=== PATIENT | male | born 1950 | race African-American/Black ===

== ENCOUNTER 2016-12-12 16:18 | Inpatient (IN) | payer OTHER, MEDICARE ==
[~2016-12-12] VITALS: Ht 175.3 cm; Wt 60.2 kg
[2016-12-12 17:33] VITALS: BP 160/87; PULSE 97; RESP 16; TEMP 97.9; O2SAT 99
[2016-12-12 20:40] LABS: AUTOMATED NEUTROPHIL # 13.4 TH/MM3 (1.8-7.7); BASOPHIL % 0.1 % (0.0-2.0); HEMATOCRIT 41.2 % (39.0-51.0); HEMO FLAGS DIFF FINAL; LYMPH % 7.1 % (9.0-44.0); LYMPHOCYTE # 1.1 TH/MM3 (1.0-4.8); MEAN CELL VOLUME 92.3 FL (80.0-100.0); MEAN CORPUSCULAR HEMOGLOBIN 31.4 PG (27.0-34.0); MONO % 4.2 % (0.0-8.0); NEUT % 88.6 % (16.0-70.0); PLATELET COUNT 298 TH/MM3 (150-450); RED BLOOD COUNT 4.46 MIL/MM3 (4.50-5.90); RED CELL DISTRIBUTION WIDTH 12.6 % (11.6-17.2); WHITE BLOOD COUNT 15.1 TH/MM3 (4.0-11.0)
[2016-12-12 21:00] LABS: ANION GAP 11 MEQ/L (5-15); BLOOD UREA NITROGEN 21 MG/DL (7-18); CHLORIDE 98 MEQ/L (98-107); GLOMERULAR FILTRATION RATE 65 ML/MIN (>89); POTASSIUM 3.9 MEQ/L (3.5-5.1); SODIUM (NA) 136 MEQ/L (136-145)
--- NOTE | 2016-12-12 21:31 | PD ---
HPI Chief Complaint: Psychiatric Symptoms Time Seen by Provider: 21:29 Travel History International Travel<30 days: No Contact w/Intl Traveler<30days: No Traveled to known affect area: No History of Present Illness HPI Patient reportedly comes in for voluntarily for psychiatric evaluation. Patient denies any homicidal or suicidal ideations. Patient states that his sister made him come. Patient denies any chest pain, shortness of breath, abdominal pain, headache, fevers, nausea, vomiting, or other medical concerns. PFSH Past Medical History Hypertension: Yes Social History Alcohol Use: No Tobacco Use: No Substance Use: No Review of Systems Except as stated in HPI: all other systems reviewed are Neg Physical Exam Narrative GENERAL: Well-developed, well nourished, in no acute distress, and non-ill appearing. SKIN: Focused skin assessment warm and dry. HEAD: Atraumatic. Normocephalic. EYES: Pupils equal and round. EOMI. No scleral icterus. No injection or drainage. ENT: No nasal bleeding or discharge. Mucous membranes pink and moist. NECK: Trachea midline. Supple. No nuclear rigidity. CARDIOVASCULAR: Regular rate and rhythm. No murmur appreciated. RESPIRATORY: No accessory muscle use. No respiratory distress. Clear to auscultation. Breath sounds equal bilaterally. GASTROINTESTINAL: Abdomen soft, non-tender, nondistended. Hepatic and splenic margins not palpable. Normal bowel sounds 4. No pulsatile mass. MUSCULOSKELETAL: No obvious deformities. No clubbing. No cyanosis. No edema. Full range of motion. NEUROLOGICAL: Awake and alert. No obvious cranial nerve deficits. Motor grossly within normal limits. Normal speech. PSYCHIATRIC: Appropriate mood and affect; insight and judgment normal. Data Data Last Documented VS Vital Signs Date Time Temp Pulse Resp B/P Pulse Ox O2 Delivery O2 Flow Rate FiO2 12/12/16 17:33 97.9 97 16 160/87 99 Orders Complete Blood Count With Diff (12/12/16 19:48) Basic Metabolic Panel (Bmp) (12/12/16 19:48) Urinalysis - C+S If Indicated (12/12/16 19:48) Drug Screen, Random Urine (12/12/16 19:48) Salicylates (Aspirin) (12/12/16 19:53) Alcohol (Ethanol) (12/12/16 20:05) Ct Brain W/O Iv Contrast(Rout) (12/12/16 ) Labs Laboratory Tests Test 12/12/16 20:05 White Blood Count 15.1 TH/MM3 Red Blood Count 4.46 MIL/MM3 Hemoglobin 14.0 GM/DL Hematocrit 41.2 % Mean Corpuscular Volume 92.3 FL Mean Corpuscular Hemoglobin 31.4 PG Mean Corpuscular Hemoglobin 34.0 % Concent Red Cell Distribution Width 12.6 % Platelet Count 298 TH/MM3 Mean Platelet Volume 8.3 FL Neutrophils (%) (Auto) 88.6 % Lymphocytes (%) (Auto) 7.1 % Monocytes (%) (Auto) 4.2 % Eosinophils (%) (Auto) 0.0 % Basophils (%) (Auto) 0.1 % Neutrophils # (Auto) 13.4 TH/MM3 Lymphocytes # (Auto) 1.1 TH/MM3 Monocytes # (Auto) 0.6 TH/MM3 Eosinophils # (Auto) 0.0 TH/MM3 Basophils # (Auto) 0.0 TH/MM3 CBC Comment DIFF FINAL Differential Comment Sodium Level 136 MEQ/L Potassium Level 3.9 MEQ/L Chloride Level 98 MEQ/L Carbon Dioxide Level 27.0 MEQ/L Anion Gap 11 MEQ/L Blood Urea Nitrogen 21 MG/DL Creatinine 1.34 MG/DL Estimat Glomerular Filtration 65 ML/MIN Rate Random Glucose 147 MG/DL Calcium Level 9.5 MG/DL Salicylates Level LESS THAN 1.7 MG/DL Ethyl Alcohol Level LESS THAN 3 MG/DL MDM Medical Decision Making Medical Screen Exam Complete: Yes Emergency Medical Condition: Yes Differential Diagnosis Homicidal, suicidal, electrolyte abnormality, UTI, other Narrative Course 2030 patient reevaluated. Ambulatory in the room with minimal assistance. Able to bear full weight. RN states he spoke with patient's sister is not here for psych evaluation but he is here secondary to having frequent falls and unsteady gait. Initial laboratory and radiologic studies were ordered. Patient was signed out to Dr. Hernandez, please see her documentation for diagnosis and disposition. Ethan Jimenez Dec 12, 2016 21:31
[2016-12-12 23:30] LABS: BACTERIA, URINE RARE /hpf; BLOOD, URINE NEG (NEG); COMMENT (UR) CULT NOT INDICATED; CULTURE IF INDICATED CULT NOT INDICATED; GLUCOSE,URINE NEG (NEG); HYALINE CAST, URINE 11 /lpf (RARE); KETONE, URINE 10 mg/dL (NEG); MUCUS URINE MANY /lpf (OCC); NITRITE,URINE NEG (NEG); PH, URINE 5.5 (5.0-8.5); SQUAMOUS EPITHELIAL CELL URINE <1 /hpf (0-5); URINE COLOR YELLOW (YELLW/STRAW)
--- NOTE | 2016-12-12 23:36 | RADRPT ---
EXAM DATE/TIME: 12/12/2016 23:16 [facility] COMPARISON: No previous studies available for comparison. INDICATIONS : Altered mental status, loss of control of body movements. RADIATION DOSE: 37.53 CTDIvol (mGy) MEDICAL HISTORY : Hypertension. SURGICAL HISTORY : None. ENCOUNTER: Initial ACUITY: 1 day PAIN SCALE: 0/10 LOCATION: cranial TECHNIQUE: Multiple contiguous axial images were obtained of the head. Using automated exposure control and adj ustment of the mA and/or kV according to patient size, radiation dose was kept as low as reasonably a chievable to obtain optimal diagnostic quality images. FINDINGS: The ventricles are enlarged out of proportion to the sulcal atrophy. In addition the third ventricle is somewhat prominent. Clinical correlation would be helpful in regards to the possibility of normal pressure hydrocephalus. No acute intracranial hemorrhage, acute cortical infarction, mass or midline shift is seen. There is periventricular hypodensity compatible with chronic ischemic change versus tr ansependymal fluid slightly more than expected for patient this age. Posterior fossa structures are u nremarkable. Bone windows are unremarkable. CONCLUSION: 1. No evidence of acute intracranial pathology. Chronic ischemic changes as above. Possible normal p ressure hydrocephalus. Correlation with clinical findings is necessary. Mata Long MD on December 12, 2016 at 23:32 Board Certified Radiologist. This report was verified electronically.
[2016-12-12 23:40] LABS: AMPHETAMINE, URINE NEG (NEG); BARBITURATES, URINE NEG (NEG); COCAINE, URINE NEG (NEG)
[2016-12-12] MEDS ORDERED: SODIUM CHLOR 0.9% 1000 ML INJ 1,000 ML IV ONE (23:45)
[2016-12-12 23:56] VITALS: BP 137/65
[2016-12-12 23:58] VITALS: BP 156/70
[2016-12-13] VITALS (7 sets, daily range): BP systolic 129–167; BP diastolic 69–90; PULSE 69–109; RESP 16–18; TEMP 96.8–99.1; O2SAT 98–100
--- NOTE | 2016-12-13 00:45 | PD ---
HPI . Frequent falls Chief Complaint: Psychiatric Symptoms Time Seen by Provider: 21:28 Travel History International Travel<30 days: No Contact w/Intl Traveler<30days: No Traveled to known affect area: No History of Present Illness HPI History is obtained from the sister by telephone. He was sent to us for evaluation of frequent falls and unsteady gait. The sister reports that he does not seem stable to live at home anymore. The patient himself has no complaints. The sister reports that his falls have become more frequent. This has been going on for several weeks. COUNTS INCLUDE 234 BEDS AT THE [facility] Past Medical History Medical History: Unable to Obtain Hypertension: Yes Past Surgical History Surgical History: Unable to Obtain Social History Alcohol Use: No Tobacco Use: No Substance Use: No (quit 1997) Allergies-Medications (Allergen,Severity, Reaction): Coded Allergies: UNOBTAINABLE (Unverified , 12/12/16) Review of Systems Except as stated in HPI: all other systems reviewed are Neg General / Constitutional: No: Fever, Chills Eyes: No: Blurred Vision HENT: No: Headaches Cardiovascular: No: Chest Pain or Discomfort Respiratory: No: Cough, Shortness of Breath Gastrointestinal: No: Nausea, Vomiting, Diarrhea, Abdominal Pain Genitourinary: No: Urgency, Frequency, Dysuria Musculoskeletal: No: Myalgias, Arthralgias Physical Exam Narrative GENERAL: This is a very pleasant older man who is in no distress. SKIN: Warm and dry. HEAD: Atraumatic. Normocephalic. EYES: Pupils equal and round. Extraocular movements are intact. ENT: No nasal bleeding or discharge. Mucous membranes pink and moist. NECK: Trachea midline. Neck is supple and nontender. CARDIOVASCULAR: Tachycardic rate, regular rhythm. RESPIRATORY: No accessory muscle use. Lungs are clear with full air movement throughout. GASTROINTESTINAL: Abdomen soft, non-tender, nondistended. MUSCULOSKELETAL: No obvious deformities. No edema. NEUROLOGICAL: Awake and alert. No obvious cranial nerve deficits. Motor grossly within normal limits. Normal speech. He is noted to have a shuffling gait. PSYCHIATRIC: Appropriate mood and affect; insight and judgment normal. Data Data Last Documented VS Vital Signs Date Time Temp Pulse Resp B/P Pulse Ox O2 Delivery O2 Flow Rate FiO2 12/13/16 00:01 119 167/87 12/12/16 17:33 97.9 16 99 Orders Complete Blood Count With Diff (4/14/17 19:48) Basic Metabolic Panel (Bmp) (12/12/16 19:48) Urinalysis - C+S If Indicated (12/12/16 19:48) Drug Screen, Random Urine (12/12/16 19:48) Salicylates (Aspirin) (12/12/16 19:53) Alcohol (Ethanol) (12/12/16 20:05) Ct Brain W/O Iv Contrast(Rout) (12/12/16 ) Orthostatic Vital Signs (12/12/16 22:54) Sodium Chlor 0.9% 1000 Ml Inj (Ns 1000 M (12/12/16 23:45) Urine Culture (12/13/16 00:45) Blood Culture (12/13/16 00:45) Chest, Single Ap (12/13/16 00:46) Lactic Acid Sepsis Protocol (12/13/16 00:46) Piperacil-Tazo 3.375 Gm Premix (Zosyn 3. (12/13/16 01:45) Admit To Inpatient (12/13/16 ) Vital Signs (Adult) Q4H (12/13/16 01:31) Activity Oob With Assistance (12/13/16 01:31) Zoning Assistant / Telemetry .CONTINUOUS (12/13/16 01:31) Intake + Output CAITLYN.QSHIFT (12/13/16 01:31) Diet Heart Healthy (12/13/16 Breakfast) Sodium Chlor 0.9% 1000 Ml Inj (Ns 1000 M (12/13/16 01:31) Sodium Chloride 0.9% Flush (Ns Flush) (12/13/16 01:45) Sodium Chloride 0.9% Flush (Ns Flush) (12/13/16 09:00) Ondansetron Inj (Zofran Inj) (12/13/16 01:45) Bisacodyl Supp (Dulcolax Supp) (12/13/16 01:45) Comprehensive Metabolic Panel (12/13/16 06:00) Complete Blood Count With Diff (12/13/16 06:00) Scd Bilateral/Knee High CAITLYN.BID (12/13/16 01:31) Yonathan Bilateral/Knee High CAITLYN.QSHIFT (12/13/16 01:31) Acetaminophen (Tylenol) (12/13/16 01:45) Acetamin-Hydrocod 325-5 Mg ([place] 5-325 (12/13/16 01:45) Morphine Inj (Morphine Inj) (12/13/16 01:45) Inpatient Certification (12/13/16 ) Hemoglobin (Hgb) A1c (12/13/16 06:00) Bedside Glucose CAITLYN.AC&HS (12/13/16 01:31) Blood Glucose Goal (Criteria) (12/13/16 01:31) Labs Laboratory Tests Test 12/12/16 12/12/16 20:05 22:40 White Blood Count 15.1 TH/MM3 Red Blood Count 4.46 MIL/MM3 Hemoglobin 14.0 GM/DL Hematocrit 41.2 % Mean Corpuscular Volume 92.3 FL Mean Corpuscular Hemoglobin 31.4 PG Mean Corpuscular Hemoglobin 34.0 % Concent Red Cell Distribution Width 12.6 % Platelet Count 298 TH/MM3 Mean Platelet Volume 8.3 FL Neutrophils (%) (Auto) 88.6 % Lymphocytes (%) (Auto) 7.1 % Monocytes (%) (Auto) 4.2 % Eosinophils (%) (Auto) 0.0 % Basophils (%) (Auto) 0.1 % Neutrophils # (Auto) 13.4 TH/MM3 Lymphocytes # (Auto) 1.1 TH/MM3 Monocytes # (Auto) 0.6 TH/MM3 Eosinophils # (Auto) 0.0 TH/MM3 Basophils # (Auto) 0.0 TH/MM3 CBC Comment DIFF FINAL Differential Comment Sodium Level 136 MEQ/L Potassium Level 3.9 MEQ/L Chloride Level 98 MEQ/L Carbon Dioxide Level 27.0 MEQ/L Anion Gap 11 MEQ/L Blood Urea Nitrogen 21 MG/DL Creatinine 1.34 MG/DL Estimat Glomerular Filtration 65 ML/MIN Rate Random Glucose 147 MG/DL Calcium Level 9.5 MG/DL Salicylates Level LESS THAN 1.7 MG/DL Ethyl Alcohol Level LESS THAN 3 MG/DL Urine Color YELLOW Urine Turbidity HAZY Urine pH 5.5 Urine Specific [place] 1.030 Urine Protein 100 mg/dL Urine Glucose (UA) NEG mg/dL Urine Ketones 10 mg/dL Urine Occult Blood NEG Urine Nitrite NEG Urine Bilirubin NEG Urine Urobilinogen LESS THAN 2.0 MG/DL Urine Leukocyte Esterase NEG Urine RBC 2 /hpf Urine WBC 4 /hpf Urine Squamous Epithelial <1 /hpf Cells Urine Bacteria RARE /hpf Urine Hyaline Casts 11 /lpf Urine Mucus MANY /lpf Microscopic Urinalysis Comment CULT NOT INDICATED Urine Opiates Screen NEG Urine Barbiturates Screen NEG Urine Amphetamines Screen NEG Urine Benzodiazepines Screen NEG Urine Cocaine Screen NEG Urine Cannabinoids Screen NEG MDM Medical Decision Making Medical Screen Exam Complete: Yes Emergency Medical Condition: Yes Medical Record Reviewed: Yes (patient has no previous records here for review) Differential Diagnosis Differential diagnosis of weakness includes but is not limited to infection, CVA , electrolyte disturbance, renal failure, hypoglycemia, UTI, ACS, acute blood loss Narrative Course Patient was sent to us by his sister for evaluation of weakness. Somehow, he was initially registered as a psychiatric evaluation. The sister reports that this is not true. The patient has not given us any reason to believe that he is a psychiatric patient. He's been very pleasant and cooperative. CBC & BMP Diagram 12/12/16 20:05 UA looks clean. The patient is receiving IV fluids for the tachycardia. I have added blood cultures and a urine culture. I will also had a chest x-ray. Last Impressions Chest X-Ray 12/13/16 0046 Signed Impressions: Service Date/Time: Tuesday, December 13, 2016 00:58 - CONCLUSION: Cardiomegaly. No acute cardiopulmonary disease. Mata Long MD Head CT 12/12/16 0000 Signed Impressions: Service Date/Time: Monday, December 12, 2016 23:16 - CONCLUSION: 1. No evidence of acute intracranial pathology. Chronic ischemic changes as above. Possible normal pressure hydrocephalus. Correlation with clinical findings is necessary. Mata Long MD Physician Communication Physician Communication Case discussed with Dr. Malin who will admit. Diagnosis Primary Impression: Frequent falls Additional Impressions: Sinus tachycardia Leukocytosis Qualified Code: D72.829 - Leukocytosis, unspecified type Admitting Information Admitting Physician Requests: Admit Condition: Stable Paris Hernandez MD Dec 13, 2016 00:45
--- NOTE | 2016-12-13 01:16 | RADRPT ---
EXAM DATE/TIME: 12/13/2016 00:58 [facility] COMPARISON: No previous studies available for comparison. INDICATIONS : Frequent recent falls. Possible syncopal episode. MEDICAL HISTORY : Hypertension. SURGICAL HISTORY : None. ENCOUNTER: Initial ACUITY: 1 day PAIN SCORE: 0/10 LOCATION: Bilateral chest FINDINGS: The cardiac silhouette is enlarged in transverse diameter. The lungs are free of acute parenchymal op acity. No effusions are identified. Osseous structures are intact. CONCLUSION: Cardiomegaly. No acute cardiopulmonary disease. Mata Long MD on December 13, 2016 at 1:15 Board Certified Radiologist. This report was verified electronically.
[2016-12-13] MEDS ORDERED: GLUCAGON 1 MG/ML VIAL OTHER PRN (01:45)
[2016-12-13] MEDS ORDERED: MORPHINE SULFATE 4 MG/ML INJ IV PRN (01:45)
[2016-12-13] MEDS ORDERED: BISACODYL 10 MG SUPP RECTAL PRN (01:45)
[2016-12-13] MEDS ORDERED: ACETAMINOPHEN 325 MG TAB PO PRN (01:45)
[2016-12-13] MEDS ORDERED: ONDANSETRON HCL 4 MG/2 ML VIAL IVP PRN (01:45)
[2016-12-13] MEDS ORDERED: PIPERACIL-TAZO 3.375 GM PREMIX 50 ML IV ONE (01:45)
[2016-12-13] MEDS ORDERED: DEXTROSE 50% IN WATER 50 ML VIAL(D50) IV PUSH PRN (01:45)
[2016-12-13] MEDS ORDERED: SODIUM CHLORIDE 0.9% FLUSH 10 ML FLUSH IV FLUSH PRN (01:45)
[2016-12-13] MEDS: SODIUM CHLOR 0.9% 1000 ML INJ 1,000 ML IV SCH ×2 (02:01→06:01)
--- NOTE | 2016-12-13 03:42 | HHI.HP ---
[facility] Service [facility] Primary Care Physician Alek Cui MD Admission Diagnosis tachycardia, leukocytosis, frequent falls Diagnoses: (1) SIRS (systemic inflammatory response syndrome) Diagnosis: Principal (2) Renal insufficiency Diagnosis: Principal (3) Hyperglycemia Diagnosis: Principal (4) Gait instability Diagnosis: Principal (5) Abnormal head CT Diagnosis: Principal Travel History International Travel<30 Days: No Contact w/Intl Traveler <30 Da: No Traveled to Known Affected Are: No History of Present Illness This is a 66-year-old male with a PMH of HTN and Dementia who presented to the ER at the insistence of his Sister secondary to recurrent falls. Per Sister's report (via telephone), pt lives alone and has been having recurrent falls, unable to care for self. Pt denies any complaints at this time. On arrival, BP 160/87, HR 97, O2 sat 99% on RA, Afebrile. WBC 15.1, elevated neutrophil count. Creatinine 1.34, no previous labs for comparison. BS 147. UA negative. Urine Drug Screen negative. Alcohol negative. CXR with no acute findings. CT Head with possible NPH no acute intracranial abnormality. S/p Blood/Urine Cultures and Zosyn IV. NxSx consulted for further eval. Review of Systems Except as stated in HPI: all other systems reviewed are Neg ROS: 14 point review of systems otherwise negative. Past Family Social History Past Medical History PMH: HTN and Dementia Past Surgical History PAST SURGICAL HISTORY: Unknown Allergies: Coded Allergies: UNOBTAINABLE (Unverified , 12/12/16) Family History PAST FAMILY HISTORY: Reviewed. No h/o DM or CAD Social History PAST SOCIAL HISTORY: Negative frock all, tobacco or drugs. Physical Exam Vital Signs Vital Signs Date Time Temp Pulse Resp B/P Pulse Ox O2 Delivery O2 Flow Rate FiO2 12/13/16 00:01 119 167/87 12/12/16 23:58 96 156/70 12/12/16 23:56 103 137/65 12/12/16 17:33 97.9 97 16 160/87 99 Physical Exam PE: GENERAL: Middle-aged black male in no acute distress, pressured/tangential speech. HEENT: PERRLA, EOMI. No scleral icterus or conjunctival pallor. No lid lag or facial droop. CARDIOVASCULAR: Regular rate and rhythm. No obvious murmurs to auscultation. No chest tenderness to palpation. RESPIRATORY: No obvious rhonchi or wheezing. Clear to auscultation. Breath sounds equal bilaterally. GASTROINTESTINAL: Abdomen soft, non-tender, nondistended. BS normal. MUSCULOSKELETAL: Extremities without clubbing, cyanosis, or edema. No obvious deformities. NEUROLOGICAL: Awake, alert and oriented x4. No focal neurologic deficits. Moving both upper and lower extremities spontaneously. Laboratory Laboratory Tests Test 12/12/16 12/12/16 12/13/16 20:05 22:40 01:00 White Blood Count 15.1 Red Blood Count 4.46 Hemoglobin 14.0 Hematocrit 41.2 Mean Corpuscular Volume 92.3 Mean Corpuscular Hemoglobin 31.4 Mean Corpuscular Hemoglobin 34.0 Concent Red Cell Distribution Width 12.6 Platelet Count 298 Mean Platelet Volume 8.3 Neutrophils (%) (Auto) 88.6 Lymphocytes (%) (Auto) 7.1 Monocytes (%) (Auto) 4.2 Eosinophils (%) (Auto) 0.0 Basophils (%) (Auto) 0.1 Neutrophils # (Auto) 13.4 Lymphocytes # (Auto) 1.1 Monocytes # (Auto) 0.6 Eosinophils # (Auto) 0.0 Basophils # (Auto) 0.0 CBC Comment DIFF FINAL Differential Comment Sodium Level 136 Potassium Level 3.9 Chloride Level 98 Carbon Dioxide Level 27.0 Anion Gap 11 Blood Urea Nitrogen 21 Creatinine 1.34 Estimat Glomerular Filtration 65 Rate Random Glucose 147 Calcium Level 9.5 Salicylates Level LESS THAN 1.7 Ethyl Alcohol Level LESS THAN 3 Urine Color YELLOW Urine Turbidity HAZY Urine pH 5.5 Urine Specific [place] 1.030 Urine Protein 100 Urine Glucose (UA) NEG Urine Ketones 10 Urine Occult Blood NEG Urine Nitrite NEG Urine Bilirubin NEG Urine Urobilinogen LESS THAN 2.0 Urine Leukocyte Esterase NEG Urine RBC 2 Urine WBC 4 Urine Squamous Epithelial <1 Cells Urine Bacteria RARE Urine Hyaline Casts 11 Urine Mucus MANY Microscopic Urinalysis Comment CULT NOT INDICATED Urine Opiates Screen NEG Urine Barbiturates Screen NEG Urine Amphetamines Screen NEG Urine Benzodiazepines Screen NEG Urine Cocaine Screen NEG Urine Cannabinoids Screen NEG Lactic Acid Level 1.9 Date/Time Procedure Status Source Growth 12/13/16 01:05 Aerobic Blood Culture Received Blood Peripheral Pending 12/13/16 01:05 Anaerobic Blood Culture Received Blood Peripheral Pending 12/12/16 22:40 Urine Culture Received Urine Clean Catch Pending Result Diagram: 12/12/16200412/12/162004 Assessment and Plan Problem List: (1) SIRS (systemic inflammatory response syndrome) ICD Code: R65.10 Status: Acute (2) Leukocytosis ICD Code: D72.829 Status: Acute (3) Renal insufficiency ICD Code: N28.9 Status: Acute (4) Hyperglycemia ICD Code: R73.9 Status: Acute (5) Gait instability ICD Code: R26.81 Status: Acute (6) Abnormal head CT ICD Code: R93.0 Status: Acute Assessment and Plan A/P: 1. SIRS: HR 97, WBC 15.1, Source-Unclear. CXR w/ no acute findings, images reviewed by me. U/a negative. S/p Blood/Urine Cultures and IV Zosyn, follow up cultures, continue w/ IV Abx. 2. Leukocytosis: WBC 15.1, as above, no clear source of infection. Continue w / IV Abx, repeat labs in am. 3. Renal Insufficiency: Creatinine 1.34, no previous labs for comparison. GFR 65. UA negative for TIA. IVF and repeat labs in a.m. 4. Hyperglycemia: BS 147, no history of DM per report. Check Hgb A1c, sliding scale w/ Accu-Cheks. 5. Gait Instability: w/ recurrent falls per Sister, pt lives alone, unsafe discharge home as inability to care for self. Consult PT for eval/tx. Consult Case Management for assistance w/ placement. 6. Abnormal CT Head: CT Head w/ no acute intracranial abnormality, however noted to have possible normal pressure hydrocephalus. NxSx consulted by ER physician for further eval. 7. DVT Prophylaxis: SCD/teds. 8. Social work for DC planning as needed. 9. Case discussed at length with ER physician. Physician Certification 2 Midnight Certification Type: Admission for Inpatient Services Order for Inpatient Services The services are ordered in accordance with Medicare regulations or non- Medicare payer requirements, as applicable. In the case of services not specified as inpatient-only, they are appropriately provided as inpatient services in accordance with the 2-midnight benchmark. Estimated LOS (days): 2 days is the estimated time the patient will need to remain in the hospital, assuming treatment plan goals are met and no additional complications. Post-Hospital Plan: Not yet determined Problem Qualifiers (1) Leukocytosis: Qualified Code: D72.829 - Leukocytosis, unspecified type Raquel Malin MD Dec 13, 2016 03:41
[2016-12-13] MEDS: INSULIN ASPART SUPPLEMENTAL SCALE SQ SCH ×4 (07:00→21:00)
[2016-12-13 07:53] LABS: AUTOMATED NEUTROPHIL # 9.7 TH/MM3 (1.8-7.7); BASOPHIL % 0.1 % (0.0-2.0); EOSINOPHIL % 0.1 % (0.0-4.0); HEMATOCRIT 34.8 % (39.0-51.0); HEMO FLAGS DIFF FINAL; LYMPH % 12.7 % (9.0-44.0); LYMPHOCYTE # 1.5 TH/MM3 (1.0-4.8); MEAN CELL VOLUME 92.2 FL (80.0-100.0); MEAN CORPUSCULAR HEMOGLOBIN 30.5 PG (27.0-34.0); MEAN CORPUSCULAR HGB CONC 33.1 % (32.0-36.0); MONO % 7.1 % (0.0-8.0); PLATELET COUNT 242 TH/MM3 (150-450); RED BLOOD COUNT 3.77 MIL/MM3 (4.50-5.90); RED CELL DISTRIBUTION WIDTH 12.2 % (11.6-17.2); WHITE BLOOD COUNT 12.1 TH/MM3 (4.0-11.0)
--- NOTE | 2016-12-13 08:26 | HHI.PR ---
Subjective Remarks INTERNAL MEDICINE ON SERVICE NOTE This is a private patient of mine. [facility] He is now transferred to my service for continued management. He reports feeling much better this morning. He denies any chest pain, palpitations, headache, nausea of emesis. He states that his legs feel weak. He reports that he is unsure why he keeps falling. He denies any recent major illness, infection or trauma before these occurrences. He feels that his appetite is good and that he is eating well. He states, "my family is worried about me and does not want me to live alone anymore. The want me to go into a detention." He states that he would rather live on his own, but feels that the family knows what is best for him. It is unclear just how long he was on the floor after the fall. His sister found him there and he could not get or assist her helping him to get up. Current work up has shown the presence of enlargement for the ventricles of the brain. Objective - Vital Signs Date Time Temp Pulse Resp B/P Pulse Ox O2 Delivery O2 Flow Rate FiO2 12/13/16 03:55 99.1 100 17 141/76 100 12/13/16 03:39 Room Air 12/13/16 03:33 109 18 130/78 99 12/13/16 00:01 119 167/87 12/12/16 23:58 96 156/70 12/12/16 23:56 103 137/65 12/12/16 17:33 97.9 97 16 160/87 99 I/O 12/12/16 12/12/16 12/12/16 12/13/16 12/13/16 12/13/16 07:00 15:00 23:00 07:00 15:00 23:00 Intake Total 786 ml 151 ml Balance 786 ml 151 ml Intake Oral 240 ml IV Total 546 ml 151 ml # Voids 2 # Bowel Movements 0 Result Diagram: 12/13/16 0707 12/12/162004 Objective Remarks GENERAL: He is alert and oriented. SKIN: Warm and dry. HEAD: Normocephalic. Atraumatic. EYES: No scleral icterus. No injection or drainage. NECK: Supple, trachea midline. No jugular venous distention or lymphadenopathy. CARDIOVASCULAR: Regular rate and rhythm without murmurs, gallops, or rubs. RESPIRATORY: Breath sounds equal bilaterally. No accessory muscle use. GASTROINTESTINAL: Abdomen soft, non-tender, nondistended. MUSCULOSKELETAL: Free range of motion. No cyanosis, or edema. BACK: Nontender without obvious deformity. No CVA tenderness. NEUROLOGICAL: There is no obvious lateralized focal motor deficit. A/P Assessment and Plan ASSESSMENT 1. Sinus Tachycardia. 2. Leukocytosis. 3. Multiple Falls. 4. Probable Normal Pressure Hydrocephalus. 5. Probable Rhabdomyolysis. 6. Hypertension. 7. Chronic Ataxic Gait. PLAN 1. MRI of the Brain is pending. 2. Neurosurgery is consulted to see him. 3. Continue with the current therapeutics. 4. Follow up labs for muscle enzmes, thyroid function, urine abnormality and cardiac status. 5. DVT and PE prophylaxis. Alek Cui MD Dec 13, 2016 08:26
[2016-12-13] MEDS: SODIUM CHLORIDE 0.9% FLUSH 10 ML FLUSH IV FLUSH SCH ×2 (08:37→21:00)
[2016-12-13] MEDS: PIPERACIL-TAZO 3.375 GM PREMIX 50 ML IV SCH ×3 (08:37→21:25)
[2016-12-13 08:57] LABS: ALKALINE PHOSPHATASE 69 U/L (45-117); ALT (GPT) 41 U/L (12-78); ANION GAP 8 MEQ/L (5-15); AST (GOT) 95 U/L (15-37); BICARBONATE 26.5 MEQ/L (21.0-32.0); BLOOD UREA NITROGEN 26 MG/DL (7-18); CHLORIDE 106 MEQ/L (98-107); GLOMERULAR FILTRATION RATE 80 ML/MIN (>89); POTASSIUM 3.8 MEQ/L (3.5-5.1); SODIUM (NA) 140 MEQ/L (136-145); TOTAL BILIRUBIN ADULT 0.4 MG/DL (0.2-1.0)
--- NOTE | 2016-12-13 09:38 | HHI.PR ---
Addendum to Inpatient Note Additional Information Discussed with Dr. Ryley Cui who is this patient's primary care physician. Dr. Cui would like to assume care. I have transferred care to his service. Dora Antunez MD Dec 13, 2016 09:38
--- NOTE | 2016-12-13 09:42 | PD.CONS ---
HPI Service Neurosurgery Consult Requested By Dr Hernandez Reason for Consult Hydrocephalus Primary Care Physician Alek Cui MD History of Present Illness This is a 66-year-old male with history of HTN and Dementia who was brought to [facility] for recurrent falls. According to his sister he lives alone and has been having recurrent falls, unable to care for self. No seizure activity. No incontinence of stool or urine. Not long biting. On arrival, his blood pressure was 160/87. He was moving all 4 extremities without any focal weakness or sensory loss. 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 Neurosurgical consultation was requested Review of Systems Constitutional: DENIES: Diaphoretic episodes, Fatigue, Fever, Weight gain, Weight loss, Chills, Dizziness, Change in appetite, Night Sweats Endocrine: DENIES: Heat/cold intolerance, Polydipsia, Polyuria, Polyphagia Eyes: DENIES: Blurred vision, Diplopia, Eye inflammation, Eye pain, Vision loss , Photosensitivity, Double Vision Ears, nose, mouth, throat: DENIES: Tinnitus, Hearing loss, Vertigo, Nasal discharge, Oral lesions, Throat pain, Hoarseness, Ear Pain, Running Nose, Epistaxis, Sinus Pain, Toothache, Odynophagia Respiratory: DENIES: Apneas, Cough, Snoring, Wheezing, Hemoptysis, Sputum production, Shortness of breath Gastrointestinal: DENIES: Abdominal pain, Black stools, Bloody stools, Constipation, Diarrhea, Nausea, Vomiting, Difficulty Swallowing, Anorexia Genitourinary: COMPLAINS OF: Urgency, DENIES: Sexual dysfunction, Urinary frequency, Urinary incontinence, Hematuria, Dysuria, Nocturia, Penile Discharge , Testicular Pain, Testicular Swelling Musculoskeletal: DENIES: Joint pain, Muscle aches, Stiffness, Joint Swelling, Back pain, Neck pain Integumentary: DENIES: Abnormal pigmentation, Nail changes, Pruritus, Rash Hematologic/lymphatic: DENIES: Bruising, Lymphadenopathy Immunologic/allergic: DENIES: Eczema, Urticaria Neurologic: COMPLAINS OF: Abnormal gait, DENIES: Headache, Localized weakness , Paresthesias, Seizures, Speech Problems, Tremor, Poor Balance Psychiatric: DENIES: Anxiety, Confusion, Mood changes, Depression, Hallucinations, Agitation, Suicidal Ideation, Homicidal Ideation, Delusions Past Family Social History Allergies: Coded Allergies: Penicillin (Verified Allergy, Unknown, 12/13/16) Past Medical History HTN Dementia Reported Medications Reviewing in EMR Active Ordered Medications Current Medications Sodium Chloride 1,000 ml @ 999 mls/hr BOLUS ONCE IV Last administered on 12/12 23:53; Start 12/12/16 at 23:45; Stop 12/13/16 at 00:45; Status DC Piperacillin Sod/ Tazobactam Sod 50 ml @ 100 mls/hr ONCE ONCE IV Last administered on 12/13/16 02:01; Start 12/13/16 at 01:45; Stop 12/13/16 at 02:14 ; Status DC Sodium Chloride (NS 1000 ml Inj) 1,000 ml @ 100 mls/hr Q10H IV Last administered on 12/13/16 06:01; Start 12/13/16 at 01:31 Sodium Chloride (NS Flush) 2 ml UNSCH PRN IV FLUSH FLUSH AFTER USING IV ACCESS ; Start 12/13/16 at 01:45 Sodium Chloride (NS Flush) 2 ml BID IV FLUSH Last administered on 12/13/16 08: 37; Start 12/13/16 at 09:00 Ondansetron HCl (Zofran Inj) 4 mg Q6H PRN IVP NAUSEA OR VOMITING; Start at 01:45 Bisacodyl (Dulcolax Supp) 10 mg DAILY PRN RECTAL CONSTIPATION; Start 12/13/16 at 01:45 Acetaminophen (Tylenol) 650 mg Q6H PRN PO FEVER/PAIN SCALE 1 TO 2; Start at 01:45 Acetaminophen/ Hydrocodone Bitart ([place] 5-325 Mg) 1 tab Q4H PRN PO PAIN SCALE 3 TO 5; Start 12/13/16 at 01:45 Morphine Sulfate (Morphine Inj) 2 mg Q3H PRN IV Pain 6-10; Start 12/13/16 at 01 :45 Dextrose (D50w (Vial) Inj) 25 ml UNSCH PRN IV PUSH HYPOGLYCEMIA-SEE COMMENTS; Start 12/13/16 at 01:45 Glucagon (Glucagon Inj) 1 mg UNSCH PRN OTHER HYPOGLYCEMIA-SEE COMMENTS; Start 12/13/16 at 01:45 Insulin Aspart 1 1 ACHS SLIDING SCALE SQ ; Start 12/13/16 at 07:00 Piperacillin Sod/ Tazobactam Sod (Zosyn 3.375 Gm Premix) 50 ml @ 100 mls/hr Q6H IV Last administered on 12/13/16t 08:37; Start 12/13/16 at 08:00 Family History Noncontributory Social History Negative for ETOH Negative tobacco Negative drug use. Physical Exam Vital Signs Vital Signs Date Time Temp Pulse Resp B/P Pulse Ox O2 Delivery O2 Flow Rate FiO2 12/13/16 03:55 99.1 100 17 141/76 100 12/13/16 03:39 Room Air 12/13/16 03:33 109 18 130/78 99 12/13/16 00:01 119 167/87 12/12/16 23:58 96 156/70 12/12/16 23:56 103 137/65 12/12/16 17:33 97.9 97 16 160/87 99 Physical Exam The patient is alert, awake and oriented to time, place and person. Speech is fluent. Cranial nerve examination demonstrates the pupils to be equal, round, and reactive to light. Extra-ocular movements are intact. Facial motor and sensory function are normal and symmetrical. Gross hearing is intact, bilaterally. The uvula is midline and elevates symmetrically with the soft palate. Sternocleidomastoid and trapezius muscles have normal and symmetrical strength. Other cranial nerves are intact. Neck is soft and supple. Cervical spine has a good range of motion in anterior flexion, extension, lateral bending, and rotation without pain. There is no tenderness to palpation to the spinous processes or paraspinal muscles. Muscle testing reveals normal bulk and tone overall without rigidity, spasticity , fasciculations, or atrophy. Muscle strength is 5/5 in all muscle groups of both upper extremities including deltoid, biceps, triceps, brachioradialis, wrist extension and railroad shop inspector. In the lower extremities, strength is 5/5 in both iliopsoas, quadriceps, hamstrings, plantar flexion, dorsiflexion, and extensor hallicus longus. Sensory examination is intact to light touch and sharp/dull discrimination in both the upper and lower extremities, symmetrically. Deep tendon reflexes are 2+ and symmetrical in the biceps, triceps, and brachioradialis, bilaterally, in the upper extremities. In the lower extremities , the patellar and Achilles are 2+, bilaterally. There is a bilateral plantar flexion response. Hoffmanns sign is negative. There is no clonus or other abnormal reflexes noted. Cerebellar examination is intact to [id number] test, rapid rhythmic alternating motion. There is no dysmetria, dysdiadochokinesia, truncal ataxia Laboratory Laboratory Tests Test 12/12/16 12/12/16 12/13/16 12/13/16 20:05 22:40 01:00 07:07 White Blood Count 15.1 12.1 Red Blood Count 4.46 3.77 Hemoglobin 14.0 11.5 Hematocrit 41.2 34.8 Mean Corpuscular Volume 92.3 92.2 Mean Corpuscular Hemoglobin 31.4 30.5 Mean Corpuscular Hemoglobin 34.0 33.1 Concent Red Cell Distribution Width 12.6 12.2 Platelet Count 298 242 Mean Platelet Volume 8.3 8.3 Neutrophils (%) (Auto) 88.6 80.0 Lymphocytes (%) (Auto) 7.1 12.7 Monocytes (%) (Auto) 4.2 7.1 Eosinophils (%) (Auto) 0.0 0.1 Basophils (%) (Auto) 0.1 0.1 Neutrophils # (Auto) 13.4 9.7 Lymphocytes # (Auto) 1.1 1.5 Monocytes # (Auto) 0.6 0.9 Eosinophils # (Auto) 0.0 0.0 Basophils # (Auto) 0.0 0.0 CBC Comment DIFF FINAL DIFF FINAL Differential Comment Sodium Level 136 140 Potassium Level 3.9 3.8 Chloride Level 98 106 Carbon Dioxide Level 27.0 26.5 Anion Gap 11 8 Blood Urea Nitrogen 21 26 Creatinine 1.34 1.12 Estimat Glomerular Filtration 65 80 Rate Random Glucose 147 95 Calcium Level 9.5 8.3 Salicylates Level LESS THAN 1.7 Ethyl Alcohol Level LESS THAN 3 Urine Color YELLOW Urine Turbidity HAZY Urine pH 5.5 Urine Specific Tracy 1.030 Urine Protein 100 Urine Glucose (UA) NEG Urine Ketones 10 Urine Occult Blood NEG Urine Nitrite NEG Urine Bilirubin NEG Urine Urobilinogen LESS THAN 2.0 Urine Leukocyte Esterase NEG Urine RBC 2 Urine WBC 4 Urine Squamous Epithelial <1 Cells Urine Bacteria RARE Urine Hyaline Casts 11 Urine Mucus MANY Microscopic Urinalysis Comment CULT NOT INDICATED Urine Opiates Screen NEG Urine Barbiturates Screen NEG Urine Amphetamines Screen NEG Urine Benzodiazepines Screen NEG Urine Cocaine Screen NEG Urine Cannabinoids Screen NEG Lactic Acid Level 1.9 Total Bilirubin 0.4 Aspartate Amino Transf 95 (AST/SGOT) Alanine Aminotransferase 41 (ALT/SGPT) Alkaline Phosphatase 69 Total Protein 6.7 Albumin 2.8 Date/Time Procedure Status Source Growth 12/13/16 01:05 Aerobic Blood Culture Received Blood Peripheral Pending 12/13/16 01:05 Anaerobic Blood Culture Received Blood Peripheral Pending 12/12/16 22:40 Urine Culture Received Urine Clean Catch Pending Result Diagram: 12/13/16 0707 12/13/16 0707 Imaging Last Impressions Chest X-Ray 12/13/16 0046 Signed Impressions: Service Date/Time: Tuesday, December 13, 2016 00:58 - CONCLUSION: Cardiomegaly. No acute cardiopulmonary disease. Mata Long MD Head CT 12/12/16 0000 Signed Impressions: Service Date/Time: Monday, December 12, 2016 23:16 - CONCLUSION: 1. No evidence of acute intracranial pathology. Chronic ischemic changes as above. Possible normal pressure hydrocephalus. Correlation with clinical findings is necessary. Mata Long MD Assessment and Plan Assessment and Plan (1) SIRS (systemic inflammatory response syndrome) ICD Code: R65.10 Status: Acute (2) Leukocytosis ICD Code: D72.829 Status: Acute (3) Renal insufficiency ICD Code: N28.9 Status: Acute (4) Hyperglycemia ICD Code: R73.9 Status: Acute (5) Gait instability ICD Code: R26.81 Status: Acute (6) Abnormal head CT ICD Code: R93.0 Attending Statement I have reviewed his clinical and radiological studies. Start neuro checks in a serial fashion. Recommend further evaluation with physical therapy to assess his baseline, placement of a lumbar drain and continue cerebrospinal fluid drainage for 24-48 hours to determine where there is improvement of his gait Consult interventional radiology for placement of a lumbar drain Respiratory. pulmonary toilette, nasotracheal suction, and breathing treatments with nebulizers. PT and OT eval Nutrition. Oral diet Renal. Renal Insufficiency: Creatinine 1.34, no previous labs for comparison. GFR 65. UA negative, monitor closely urine output, BUN and creatinine Endocrine. Monitor serial Acu checks and SSI for tight control ID Leukocytosis, no clear source of infection. Monitor for signs of infection Protonix for stress ulcer prophylaxis Yonathan martinez and SCD's for DVT prophylaxis Saeid Partida MD Dec 13, 2016 09:42
[2016-12-13 10:03] LABS: MAGNESIUM 2.3 MG/DL (1.5-2.5); THYROXINE (T4) 7.9 MCG/DL (4.5-12.1)
[2016-12-13 10:16] LABS: CKMB 14.4 NG/ML (0.5-3.6)
[2016-12-13 10:58] LABS: HEMOGLOBIN A1a 0.9 %; HEMOGLOBIN A1b 1.4 %; HEMOGLOBIN LA1C 1.9 %; HEMOGLOBIN P3 3.5 %
[2016-12-13] MEDS: SODIUM CHLOR 0.45% 1000 ML INJ 1,000 ML IV SCH (15:31)
--- NOTE | 2016-12-13 15:41 | RADRPT ---
EXAM DATE/TIME: 12/13/2016 15:06 [facility] COMPARISON: CT BRAIN W/O CONTRAST, December 12, 2016, 23:16. INDICATIONS : Frequent falls. MEDICAL HISTORY : Hypertension. Dementia. SURGICAL HISTORY : None. ENCOUNTER: Initial ACUITY: 1 day PAIN SCORE: 0/10 LOCATION: cranial TECHNIQUE: Multiplanar, multisequence MRI of the brain was performed without contrast. FINDINGS: There is mild hydrocephalus similar to recent CT examination. There is moderate chronic ischemic miller ges in the periventricular white matter. No recent infarction is identified. There is no mass or midl ine shift. No sellar mass identified. CONCLUSION: 1. Mild hydrocephalus with chronic appearing moderate periventricular white matter ischemic changes. No recent infarct. Jun Pena MD on December 13, 2016 at 15:36 Board Certified Radiologist. This report was verified electronically.
[2016-12-14] VITALS (7 sets, daily range): BP systolic 145–178; BP diastolic 74–87; PULSE 75–89; RESP 16–17; TEMP 96.9–98.2; O2SAT 95–100
[2016-12-14] MEDS: PIPERACIL-TAZO 3.375 GM PREMIX 50 ML IV SCH ×4 (02:32→20:00)
[2016-12-14] MEDS: SODIUM CHLOR 0.45% 1000 ML INJ 1,000 ML IV SCH ×3 (06:45→22:45)
[2016-12-14] MEDS: INSULIN ASPART SUPPLEMENTAL SCALE SQ SCH ×4 (07:00→21:00)
[2016-12-14] MEDS: SODIUM CHLORIDE 0.9% FLUSH 10 ML FLUSH IV FLUSH SCH ×2 (08:21→21:00)
[2016-12-14 09:28] LABS: AUTOMATED NEUTROPHIL # 8.6 TH/MM3 (1.8-7.7); BASOPHIL # 0.1 TH/MM3 (0-0.2); BASOPHIL % 0.5 % (0.0-2.0); EOSINOPHIL % 0.4 % (0.0-4.0); HEMATOCRIT 35.6 % (39.0-51.0); HEMO FLAGS DIFF FINAL; LYMPH % 17.2 % (9.0-44.0); MEAN CELL VOLUME 92.7 FL (80.0-100.0); MEAN CORPUSCULAR HGB CONC 33.4 % (32.0-36.0); MONO % 6.8 % (0.0-8.0); NEUT % 75.1 % (16.0-70.0); PLATELET COUNT 266 TH/MM3 (150-450); RED BLOOD COUNT 3.84 MIL/MM3 (4.50-5.90); RED CELL DISTRIBUTION WIDTH 12.2 % (11.6-17.2); WHITE BLOOD COUNT 11.5 TH/MM3 (4.0-11.0)
[2016-12-14 09:59] LABS: BICARBONATE 29.1 MEQ/L (21.0-32.0); POTASSIUM 3.8 MEQ/L (3.5-5.1)
[2016-12-14 10:43] LABS: CKMB 4.4 NG/ML (0.5-3.6)
--- NOTE | 2016-12-14 10:51 | HHI.NSPN ---
Note Status Status: Progress Note Interval History Diagnosis NPH Interval History Mr. Burris is a 66-year-old male with history of HTN and Dementia who was brought to [place] [facility] for recurrent falls. 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 Neurosurgical consultation was requested 12/15: he reports no changes in his gait, Dr. Partida again offered trial with lumbar drain, pt states he does not want to have it done today and wants to relax Labs, Micro, & Vital Signs Results Date Time Temp Pulse Resp B/P Pulse Ox O2 Delivery O2 Flow Rate FiO2 12/14/16 08:00 97.6 89 16 160/87 100 12/14/16 07:25 83 12/14/16 04:10 98.2 84 17 162/77 99 12/14/16 00:45 97.1 75 17 164/74 95 12/13/16 21:00 96.8 85 16 147/83 100 12/13/16 16:00 98.9 99 16 156/90 98 12/13/16 12:00 99.1 94 16 129/69 98 12/14/16 07:00 Intake Total 2554 ml Output Total 400 ml Balance 2154 ml Constitutional Vital Signs Date Time Temp Pulse Resp B/P Pulse Ox O2 Delivery O2 Flow Rate FiO2 12/14/16 08:00 97.6 89 16 160/87 100 12/14/16 07:25 83 12/14/16 04:10 98.2 84 17 162/77 99 12/14/16 00:45 97.1 75 17 164/74 95 12/13/16 21:00 96.8 85 16 147/83 100 12/13/16 16:00 98.9 99 16 156/90 98 12/13/16 12:00 99.1 94 16 129/69 98 12/14/16 07:00 Intake Total 2554 ml Output Total 400 ml Balance 2154 ml Review of Systems/Exam Exam Mr Burris is alert, awake and oriented to time, place and person. Speech is fluent. Cranial nerve examination demonstrates the pupils to be equal, round, and reactive to light. Extra-ocular movements are intact. Facial motor and sensory function are normal and symmetrical. Gross hearing is intact, bilaterally. The uvula is midline and elevates symmetrically with the soft palate. Sternocleidomastoid and trapezius muscles have normal and symmetrical strength. Other cranial nerves are intact. Neck is soft and supple. Cervical spine has a good range of motion in anterior flexion, extension, lateral bending, and rotation without pain. There is no tenderness to palpation to the spinous processes or paraspinal muscles. Muscle testing reveals normal bulk and tone overall without rigidity, spasticity , fasciculations, or atrophy. Muscle strength is 5/5 in all muscle groups of both upper extremities including deltoid, biceps, triceps, brachioradialis, wrist extension and career technical counselor. In the lower extremities, strength is 5/5 in both iliopsoas, quadriceps, hamstrings, plantar flexion, dorsiflexion, and extensor hallicus longus. Sensory examination is intact to light touch and sharp/dull discrimination in both the upper and lower extremities, symmetrically. Deep tendon reflexes are 2+ and symmetrical in the biceps, triceps, and brachioradialis, bilaterally, in the upper extremities. In the lower extremities , the patellar and Achilles are 2+, bilaterally. There is a bilateral plantar flexion response. Hoffmanns sign is negative. There is no clonus or other abnormal reflexes noted. Cerebellar examination is intact to [id number] test, rapid rhythmic alternating motion. There is no dysmetria, dysdiadochokinesia, truncal ataxia Medications Current Medications Current Medications Sodium Chloride 1,000 ml @ 999 mls/hr BOLUS ONCE IV Last administered on 12/12 23:53; Start 12/12/16 at 23:45; Stop 12/13/16 at 00:45; Status DC Piperacillin Sod/ Tazobactam Sod 50 ml @ 100 mls/hr ONCE ONCE IV Last administered on 12/13/16 02:01; Start 12/13/16 at 01:45; Stop 12/13/16 at 02:14 ; Status DC Sodium Chloride (NS 1000 ml Inj) 1,000 ml @ 100 mls/hr Q10H IV Last administered on 12/13/16 06:01; Start 12/13/16 at 01:31; Stop 12/13/16 at 14:36 ; Status DC Sodium Chloride (NS Flush) 2 ml UNSCH PRN IV FLUSH FLUSH AFTER USING IV ACCESS ; Start 12/13/16 at 01:45 Sodium Chloride (NS Flush) 2 ml BID IV FLUSH Last administered on 12/13/16 21: 00; Start 12/13/16 at 09:00 Ondansetron HCl (Zofran Inj) 4 mg Q6H PRN IVP NAUSEA OR VOMITING; Start at 01:45 Bisacodyl (Dulcolax Supp) 10 mg DAILY PRN RECTAL CONSTIPATION; Start 12/13/16 at 01:45 Acetaminophen (Tylenol) 650 mg Q6H PRN PO FEVER/PAIN SCALE 1 TO 2; Start at 01:45 Acetaminophen/ Hydrocodone Bitart ([place] 5-325 Mg) 1 tab Q4H PRN PO PAIN SCALE 3 TO 5; Start 12/13/16 at 01:45 Morphine Sulfate (Morphine Inj) 2 mg Q3H PRN IV Pain 6-10; Start 12/13/16 at 01 :45 Dextrose (D50w (Vial) Inj) 25 ml UNSCH PRN IV PUSH HYPOGLYCEMIA-SEE COMMENTS; Start 12/13/16 at 01:45 Glucagon (Glucagon Inj) 1 mg UNSCH PRN OTHER HYPOGLYCEMIA-SEE COMMENTS; Start 12/13/16 at 01:45 Insulin Aspart 1 1 ACHS SLIDING SCALE SQ Last administered on 12/15/16 11:00 ; Start 12/13/16 at 07:00 Piperacillin Sod/ Tazobactam Sod 50 ml @ 100 mls/hr Q6H IV Last administered on 12/15/16 07:54; Start 12/13/16 at 08:00 Sodium Chloride (1/2 NS 1000 ml Inj) 1,000 ml @ 125 mls/hr Q8H IV Last administered on 12/14/16 08:21; Start 12/13/16 at 14:45 Amlodipine Besylate (Norvasc) 10 mg ONCE ONCE PO Last administered on 12:24; Start 12/14/16 at 12:00; Stop 12/14/16 at 12:04; Status DC Lisinopril (Prinivil) 20 mg DAILY PO Last administered on 12/15/16 07:54; Start 12/15/16 at 09:00 Medical Decision Making MDM Remarks Last Impressions Chest X-Ray 12/13/16 0046 Signed Impressions: Service Date/Time: Tuesday, December 13, 2016 00:58 - CONCLUSION: Cardiomegaly. No acute cardiopulmonary disease. Mata Long MD Brain MRI 12/13/16 0000 Signed Impressions: Service Date/Time: Tuesday, December 13, 2016 15:06 - CONCLUSION: 1. Mild hydrocephalus with chronic appearing moderate periventricular white matter ischemic changes. No recent infarct. Jun Pena MD Head CT 12/12/16 0000 Signed Impressions: Service Date/Time: Monday, December 12, 2016 23:16 - CONCLUSION: 1. No evidence of acute intracranial pathology. Chronic ischemic changes as above. Possible normal pressure hydrocephalus. Correlation with clinical findings is necessary. Mata Long MD Plan Plan Remarks 66 y/o male recurrent falls, evidence of communicating hydrocephalus on Head CT , suspected NPH (1) SIRS (systemic inflammatory response syndrome) ICD Code: R65.10 Status: Acute (2) Leukocytosis ICD Code: D72.829 Status: Acute (3) Renal insufficiency ICD Code: N28.9 Status: Acute (4) Hyperglycemia ICD Code: R73.9 Status: Acute (5) Gait instability ICD Code: R26.81 Status: Acute (6) Abnormal head CT ICD Code: R93.0 Attending Statement Continue neuro checks in a serial fashion. Recommend further evaluation with physical therapy to assess his baseline, placement of a lumbar drain and continuous cerebrospinal fluid drainage for 24-48 hours to determine where there is improvement of his gait Consult interventional radiology for placement of a lumbar drain Respiratory. Continue pulmonary toilette, nasotracheal suction, and breathing treatments with nebulizers. PT and OT eval Nutrition. Continue Oral diet Renal. Renal Insufficiency: Creatinine 1.34, no previous labs for comparison. GFR 65. UA negative, monitor closely urine output, BUN and creatinine Endocrine. Monitor serial Acu checks and SSI for tight control ID Leukocytosis, no clear source of infection. Monitor for signs of infection Continue Protonix for stress ulcer prophylaxis Continue Yonathan hose and SCD's for DVT prophylaxis Saeid Partida MD Dec 14, 2016 10:51
--- NOTE | 2016-12-14 12:10 | HHI.PR ---
Subjective Remarks He is being with visitation by his sister. He denies any new adverse complaints. The disposition of Neurosurgery is appreciated with the plan of treatment started. He has been seen by Physical Therapy. His appetite appears to be good. The marked elevation of his muscle enzymes have shown a decrease in the level of total CPK. He continues with intravenous hydration. Objective - Vital Signs Date Time Temp Pulse Resp B/P Pulse Ox O2 Delivery O2 Flow Rate FiO2 12/14/16 11:52 96.9 80 16 178/87 99 12/14/16 08:00 97.6 89 16 160/87 100 12/14/16 07:25 83 12/14/16 04:10 98.2 84 17 162/77 99 12/14/16 00:45 97.1 75 17 164/74 95 12/13/16 21:00 96.8 85 16 147/83 100 12/13/16 16:00 98.9 99 16 156/90 98 I/O 12/13/16 12/13/16 12/13/16 12/14/16 12/14/16 12/14/16 07:00 15:00 23:00 07:00 15:00 23:00 Intake Total 786 ml 951 ml 240 ml 1363 ml Output Total 400 ml Balance 786 ml 951 ml -160 ml 1363 ml Intake Oral 240 ml 600 ml 240 ml 240 ml IV Total 546 ml 351 ml 1123 ml Output Urine Total 400 ml # Voids 2 4 1 3 # Bowel Movements 0 0 0 0 Result Diagram: 12/14/16 0915 12/14/16 0915 Objective Remarks GENERAL: Alert and in no acute distress. SKIN: Warm and dry. HEAD: Normocephalic. Atraumatic. EYES: No scleral icterus. No injection or drainage. NECK: Supple, trachea midline. No jugular venous distention or lymphadenopathy. CARDIOVASCULAR: Regular rate and rhythm without murmurs, gallops, or rubs. RESPIRATORY: Breath sounds equal bilaterally. No accessory muscle use. GASTROINTESTINAL: Abdomen soft, non-tender, nondistended. MUSCULOSKELETAL: Free range of motion. No cyanosis, or edema. BACK: Nontender without obvious deformity. No costovertebral angle tenderness. No sacral edema. A/P Assessment and Plan ASSESSMENT 1. Normal Pressure Hydrocephalus. 2. Rhabdomyolysis. 3. Multiple Falls. 4. Leukocytosis. 5. Sinus Tachycardia. 6. Hypertension. 7. Chronic Ataxic Gait. PLAN 1. Discussed the MRI of Brain results with the patient and his sister. 2. Neurosurgery continues with treatment plan. 3. Continue with the current therapeutics. 4. Follow up labs as needed. 5. DVT and PE prophylaxis. Alek Cui MD Dec 14, 2016 12:10 Alek Cui MD Dec 14, 2016 12:10
--- NOTE | 2016-12-14 13:44 | EKG ---
Date Performed: 12/13/2016 Time Performed: 14:49:38 PTAGE: 66 years EKG: Sinus rhythm MINIMAL VOLTAGE CRITERIA FOR LVH, CONSIDER NORMAL VARIANT BORDERLINE ECG NO PREVIOUS TRACING DOCTOR: Hema Lion Interpretating Date/Time 12/14/2016 13:42:47
[2016-12-15] VITALS (7 sets, daily range): BP systolic 131–169; BP diastolic 69–95; PULSE 65–92; RESP 16–19; TEMP 96.2–98.4; O2SAT 98–100
[2016-12-15] MEDS: PIPERACIL-TAZO 3.375 GM PREMIX 50 ML IV SCH ×4 (02:03→19:42)
[2016-12-15] MEDS: SODIUM CHLOR 0.45% 1000 ML INJ 1,000 ML IV SCH ×3 (06:45→22:45)
[2016-12-15] MEDS: INSULIN ASPART SUPPLEMENTAL SCALE SQ SCH ×4 (07:00→19:48)
[2016-12-15 07:25] LABS: AUTOMATED NEUTROPHIL # 5.1 TH/MM3 (1.8-7.7); BASOPHIL # 0.1 TH/MM3 (0-0.2); BASOPHIL % 0.9 % (0.0-2.0); EOSINOPHIL # 0.1 TH/MM3 (0-0.4); HEMATOCRIT 36.4 % (39.0-51.0); HEMO FLAGS DIFF FINAL; LYMPH % 27.3 % (9.0-44.0); LYMPHOCYTE # 2.2 TH/MM3 (1.0-4.8); MEAN CELL VOLUME 92.8 FL (80.0-100.0); MEAN CORPUSCULAR HEMOGLOBIN 30.6 PG (27.0-34.0); MEAN CORPUSCULAR HGB CONC 32.9 % (32.0-36.0); MONO % 8.4 % (0.0-8.0); NEUT % 62.4 % (16.0-70.0); PLATELET COUNT 295 TH/MM3 (150-450); RED BLOOD COUNT 3.92 MIL/MM3 (4.50-5.90); RED CELL DISTRIBUTION WIDTH 12.3 % (11.6-17.2); WHITE BLOOD COUNT 8.2 TH/MM3 (4.0-11.0)
[2016-12-15] MEDS: LISINOPRIL 20 MG TAB PO SCH (07:54)
[2016-12-15] MEDS: SODIUM CHLORIDE 0.9% FLUSH 10 ML FLUSH IV FLUSH SCH ×2 (07:56→19:16)
[2016-12-15 08:07] LABS: BICARBONATE 28.9 MEQ/L (21.0-32.0); MAGNESIUM 2.2 MG/DL (1.5-2.5); POTASSIUM 3.6 MEQ/L (3.5-5.1)
[2016-12-15 08:23] LABS: CKMB 2.3 NG/ML (0.5-3.6)
--- NOTE | 2016-12-15 10:38 | HHI.NSPN ---
(Kristel Arellano) Note Status Status: Progress Note (Kristel Arellano) Interval History Interval History Mr. Burris is a 66-year-old male with history of HTN and Dementia who was brought to [place] ER for recurrent falls. 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 Neurosurgical consultation was requested 12/15: he reports no changes in his gait, Dr. Partida again offered trial with lumbar drain, pt states he does not want to have it done today and wants to relax (Kristel Arellano) Labs, Micro, & Vital Signs Results Date Time Temp Pulse Resp B/P Pulse Ox O2 Delivery O2 Flow Rate FiO2 12/15/16 08:00 98.4 80 19 169/95 100 12/15/16 05:15 96.2 79 16 131/69 99 12/15/16 01:00 96.2 69 16 144/79 98 12/14/16 21:30 97.2 76 16 155/78 99 12/14/16 16:45 98.1 88 16 145/82 100 12/14/16 11:52 96.9 80 16 178/87 99 12/15/16 06:59 Intake Total 600 ml Balance 600 ml Constitutional Vital Signs Date Time Temp Pulse Resp B/P Pulse Ox O2 Delivery O2 Flow Rate FiO2 12/15/16 08:00 98.4 80 19 169/95 100 12/15/16 05:15 96.2 79 16 131/69 99 12/15/16 01:00 96.2 69 16 144/79 98 12/14/16 21:30 97.2 76 16 155/78 99 12/14/16 16:45 98.1 88 16 145/82 100 12/14/16 11:52 96.9 80 16 178/87 99 12/15/16 06:59 Intake Total 600 ml Balance 600 ml (Kristel Arellano) Review of Systems/Exam Exam Mr Burris is alert, awake and oriented to time, place and person. Speech is fluent. Cranial nerve examination demonstrates the pupils to be equal, round, and reactive to light. Extra-ocular movements are intact. Facial motor and sensory function are normal and symmetrical. Gross hearing is intact, bilaterally. The uvula is midline and elevates symmetrically with the soft palate. Sternocleidomastoid and trapezius muscles have normal and symmetrical strength. Other cranial nerves are intact. Neck is soft and supple. Cervical spine has a good range of motion in anterior flexion, extension, lateral bending, and rotation without pain. There is no tenderness to palpation to the spinous processes or paraspinal muscles. Muscle testing reveals normal bulk and tone overall without rigidity, spasticity , fasciculations, or atrophy. Muscle strength is 5/5 in all muscle groups of both upper extremities including deltoid, biceps, triceps, brachioradialis, wrist extension and religious education coordinator. In the lower extremities, strength is 5/5 in both iliopsoas, quadriceps, hamstrings, plantar flexion, dorsiflexion, and extensor hallicus longus. Sensory examination is intact to light touch and sharp/dull discrimination in both the upper and lower extremities, symmetrically. Deep tendon reflexes are 2+ and symmetrical in the biceps, triceps, and brachioradialis, bilaterally, in the upper extremities. In the lower extremities , the patellar and Achilles are 2+, bilaterally. There is a bilateral plantar flexion response. Hoffmanns sign is negative. There is no clonus or other abnormal reflexes noted. Cerebellar examination is intact to [id number] test, rapid rhythmic alternating motion. There is no dysmetria, dysdiadochokinesia, truncal ataxia ( Saeid Partida MD) Medications Current Medications Current Medications Medications (Trade) Dose Ordered Sig/Sherita Route PRN Reason Start Time Stop Time Status Last Admin Dose Admin Sodium Chloride (NS Flush) 2 ml UNSCH PRN IV FLUSH FLUSH AFTER USING IV ACCESS 12/13/16 01:45 Sodium Chloride (NS Flush) 2 ml BID IV FLUSH 12/13/16 09:00 12/13/16 21:00 Ondansetron HCl (Zofran Inj) 4 mg Q6H PRN IVP NAUSEA OR VOMITING 12/13/16 01:45 Bisacodyl (Dulcolax Supp) 10 mg DAILY PRN RECTAL CONSTIPATION 12/13/16 01:45 Acetaminophen (Tylenol) 650 mg Q6H PRN PO FEVER/PAIN SCALE 1 TO 2 12/13/16 01:45 Acetaminophen/ Hydrocodone Bitart ([place] 5-325 Mg) 1 tab Q4H PRN PO PAIN SCALE 3 TO 5 12/13/16 01:45 Morphine Sulfate (Morphine Inj) 2 mg Q3H PRN IV Pain 6-10 12/13/16 01:45 Dextrose (D50w (Vial) Inj) 25 ml UNSCH PRN IV PUSH HYPOGLYCEMIA-SEE COMMENTS 12/13/16 01:45 Glucagon 1 mg 1 mg UNSCH PRN OTHER HYPOGLYCEMIA-SEE COMMENTS 12/13/16 01:45 Piperacillin Sod/ Tazobactam Sod 50 ml @ 100 mls/hr Q6H IV 12/13/16 08:00 12/15/16 07:54 Sodium Chloride (1/2 NS 1000 ml Inj) 1,000 ml @ 125 mls/hr Q8H IV 12/13/16 14:45 12/14/16 08:21 Lisinopril (Prinivil) 20 mg DAILY PO 12/15/16 09:00 12/15/16 07:54 (Kristel Arellano) Medical Decision Making MDM Remarks 66 y/o male recurrent falls, evidence of communicating hydrocephalus on Head CT , suspected NPH (Kristel Arellano) Plan Plan Remarks again recommend evaluation of suspected NPH with lumbar drain this procedure was discussed with the patient, he does not want test done today (Kristel Arellano) Plan Remarks 66 y/o male recurrent falls, evidence of communicating hydrocephalus on Head CT , suspected NPH (1) SIRS (systemic inflammatory response syndrome) ICD Code: R65.10 Status: Acute (2) Leukocytosis ICD Code: D72.829 Status: Acute (3) Renal insufficiency ICD Code: N28.9 Status: Acute (4) Hyperglycemia ICD Code: R73.9 Status: Acute (5) Gait instability ICD Code: R26.81 Status: Acute (6) Abnormal head CT ICD Code: R93.0 (Saeid Partida MD) Attending Statement Continue neuro checks in a serial fashion. Recommend further evaluation with physical therapy to assess his baseline, placement of a lumbar drain and continuous cerebrospinal fluid drainage for 24-48 hours to determine where there is improvement of his gait Consult interventional radiology for placement of a lumbar drain Respiratory. Continue pulmonary toilette, nasotracheal suction, and breathing treatments with nebulizers. PT and OT eval Nutrition. Continue Oral diet Renal. Renal Insufficiency: Creatinine 1.34, no previous labs for comparison. GFR 65. UA negative, monitor closely urine output, BUN and creatinine Endocrine. Monitor serial Acu checks and SSI for tight control ID Leukocytosis, no clear source of infection. Monitor for signs of infection Continue Protonix for stress ulcer prophylaxis Continue Yonathan hose and SCD's for DVT prophylaxis (Saeid Partida MD) Kristel Arellano Dec 15, 2016 10:38 Saeid Partida MD Dec 15, 2016 13:12
--- NOTE | 2016-12-15 13:13 | HHI.PR ---
Subjective Remarks He was seen by Neurosurgery earlier today and did not agree to the procedure for the drain to be done today. I spoke to him regarding the importance of the matter. He agreed to proceed with the procedure. He states that he did not understand what was the situation. Objective - Vital Signs Date Time Temp Pulse Resp B/P Pulse Ox O2 Delivery O2 Flow Rate FiO2 12/15/16 08:00 98.4 80 19 169/95 100 12/15/16 05:15 96.2 79 16 131/69 99 12/15/16 01:00 96.2 69 16 144/79 98 12/14/16 21:30 97.2 76 16 155/78 99 12/14/16 16:45 98.1 88 16 145/82 100 I/O 12/14/16 12/14/16 12/14/16 12/15/16 12/15/16 12/15/16 07:00 15:00 23:00 07:00 15:00 23:00 Intake Total 1363 ml 480 ml 120 ml Balance 1363 ml 480 ml 120 ml Intake Oral 240 ml 480 ml 120 ml IV Total 1123 ml # Voids 3 2 3 # Bowel Movements 0 0 1 Result Diagram: 12/15/16 0612 12/15/16 0612 Objective Remarks GENERAL: Alert. He states that he is feeling well. SKIN: Warm and dry. HEAD: Normocephalic. EYES: No scleral icterus. No injection or drainage. NECK: Supple, trachea midline. No JVD or lymphadenopathy. CARDIOVASCULAR: Regular rate and rhythm without murmurs, gallops, or rubs. RESPIRATORY: Breath sounds equal bilaterally. No accessory muscle use. GASTROINTESTINAL: Abdomen soft, non-tender, nondistended. MUSCULOSKELETAL: No cyanosis, or edema. Free range of motion of limbs. Pulses at 3+/4+. BACK: Nontender without obvious deformity. No CVA tenderness. A/P Assessment and Plan ASSESSMENT 1. Normal Pressure Hydrocephalus. 2. Rhabdomyolysis. 3. Multiple Falls. 4. Leukocytosis. 5. Sinus Tachycardia. 6. Hypertension. 7. Chronic Ataxic Gait. PLAN 1. Discussed the drain placement and he wishes to proceed. 2. Neurosurgery continues to follow. 3. Continue with the current therapeutics. 4. Follow up labs as needed. 5. DVT and PE prophylaxis. Alek Cui MD Dec 15, 2016 13:13
[2016-12-16] VITALS (10 sets, daily range): BP systolic 108–183; BP diastolic 62–99; PULSE 60–109; RESP 16–20; TEMP 96.1–98.1; O2SAT 96–100
[2016-12-16] MEDS: PIPERACIL-TAZO 3.375 GM PREMIX 50 ML IV SCH ×4 (03:24→21:13)
[2016-12-16] MEDS: INSULIN ASPART SUPPLEMENTAL SCALE SQ SCH ×4 (06:10→21:00)
[2016-12-16] MEDS: LISINOPRIL 20 MG TAB PO SCH (08:06)
[2016-12-16] MEDS ORDERED: SODIUM CHLOR 0.45% 1000 ML INJ 1,000 ML IV SCH (09:28)
[2016-12-16] MEDS ORDERED: ceFAZolin 2 GM PREMIX 50 ML IV SCH (09:30)
[2016-12-16] MEDS: SODIUM CHLORIDE 0.9% FLUSH 10 ML FLUSH IV FLUSH SCH ×2 (11:00→21:12)
[2016-12-16 12:14] LABS: APTT (PATIENT) 28.2 SEC (24.3-30.1); PROTHROMBIN TIME - PATIENT 11.1 SEC (9.8-11.6)
[2016-12-16] MEDS ORDERED: VANCOMYCIN HCL 1000 MG VIAL ONE (14:10)
[2016-12-16] MEDS ORDERED: fentaNYL CITRATE 250 MCG/5 ML AMP ONE (14:38)
--- NOTE | 2016-12-16 15:33 | HHI.NSPN ---
(Kristel Arellano) Note Status Status: Progress Note (Kristel Arellano) Interval History Interval History Mr. Burris is a 66-year-old male with history of HTN and Dementia who was brought to [place] ER for recurrent falls. 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 Neurosurgical consultation was requested 12/15: he reports no changes in his gait, Dr. Partida again offered trial with lumbar drain, pt states he does not want to have it done today and wants to relax 12/16: today he is ready for lumbar drain placement (Kristel Arellano) Labs, Micro, & Vital Signs Results Date Time Temp Pulse Resp B/P Pulse Ox O2 Delivery O2 Flow Rate FiO2 12/16/16 15:25 98.0 79 20 142/76 100 12/16/16 12:15 98.1 64 16 144/70 97 12/16/16 08:08 97.3 60 18 160/89 96 12/16/16 03:40 96.1 63 17 157/69 98 12/15/16 23:30 97.0 65 16 141/75 99 12/15/16 20:30 96.9 80 16 143/69 98 12/15/16 16:00 96.2 92 18 141/75 100 12/16/16 07:00 Intake Total 1080 ml Output Total 600 ml Balance 480 ml Constitutional Vital Signs Date Time Temp Pulse Resp B/P Pulse Ox O2 Delivery O2 Flow Rate FiO2 12/16/16 15:25 98.0 79 20 142/76 100 12/16/16 12:15 98.1 64 16 144/70 97 12/16/16 08:08 97.3 60 18 160/89 96 12/16/16 03:40 96.1 63 17 157/69 98 12/15/16 23:30 97.0 65 16 141/75 99 12/15/16 20:30 96.9 80 16 143/69 98 12/15/16 16:00 96.2 92 18 141/75 100 12/16/16 07:00 Intake Total 1080 ml Output Total 600 ml Balance 480 ml (Kristel Arellano) Review of Systems/Exam Exam Mr Burris is alert, awake and oriented to time, place and person. Speech is fluent. Cranial nerve examination demonstrates the pupils to be equal, round, and reactive to light. Extra-ocular movements are intact. Facial motor and sensory function are normal and symmetrical. Gross hearing is intact, bilaterally. The uvula is midline and elevates symmetrically with the soft palate. Sternocleidomastoid and trapezius muscles have normal and symmetrical strength. Other cranial nerves are intact. Neck is soft and supple. Cervical spine has a good range of motion in anterior flexion, extension, lateral bending, and rotation without pain. There is no tenderness to palpation to the spinous processes or paraspinal muscles. Muscle testing reveals normal bulk and tone overall without rigidity, spasticity , fasciculations, or atrophy. Muscle strength is 5/5 in all muscle groups of both upper extremities including deltoid, biceps, triceps, brachioradialis, wrist extension and barrel finisher. In the lower extremities, strength is 5/5 in both iliopsoas, quadriceps, hamstrings, plantar flexion, dorsiflexion, and extensor hallicus longus. Sensory examination is intact to light touch and sharp/dull discrimination in both the upper and lower extremities, symmetrically. Deep tendon reflexes are 2+ and symmetrical in the biceps, triceps, and brachioradialis, bilaterally, in the upper extremities. In the lower extremities , the patellar and Achilles are 2+, bilaterally. There is a bilateral plantar flexion response. Hoffmanns sign is negative. There is no clonus or other abnormal reflexes noted. Cerebellar examination is intact to [id number] test, rapid rhythmic alternating motion. There is no dysmetria, dysdiadochokinesia, truncal ataxia ( Kristel Arellano) Medications Current Medications Current Medications Medications (Trade) Dose Ordered Sig/Sherita Route PRN Reason Start Time Stop Time Status Last Admin Dose Admin Sodium Chloride (NS Flush) 2 ml UNSCH PRN IV FLUSH FLUSH AFTER USING IV ACCESS 12/13/16 01:45 Sodium Chloride (NS Flush) 2 ml BID IV FLUSH 12/13/16 09:00 12/16/16 11:00 Ondansetron HCl (Zofran Inj) 4 mg Q6H PRN IVP NAUSEA OR VOMITING 12/13/16 01:45 Bisacodyl (Dulcolax Supp) 10 mg DAILY PRN RECTAL CONSTIPATION 12/13/16 01:45 Acetaminophen (Tylenol) 650 mg Q6H PRN PO FEVER/PAIN SCALE 1 TO 2 12/13/16 01:45 Acetaminophen/ Hydrocodone Bitart ([place] 5-325 Mg) 1 tab Q4H PRN PO PAIN SCALE 3 TO 5 12/13/16 01:45 Morphine Sulfate (Morphine Inj) 2 mg Q3H PRN IV Pain 6-10 12/13/16 01:45 Dextrose (D50w (Vial) Inj) 25 ml UNSCH PRN IV PUSH HYPOGLYCEMIA-SEE COMMENTS 12/13/16 01:45 Glucagon 1 mg 1 mg UNSCH PRN OTHER HYPOGLYCEMIA-SEE COMMENTS 12/13/16 01:45 Piperacillin Sod/ Tazobactam Sod (Zosyn 3.375 Gm Premix) 50 ml @ 100 mls/hr Q6H IV 12/13/16 08:00 12/16/16 10:59 Lisinopril 20 mg 20 mg DAILY PO 12/15/16 09:00 12/16/16 08:06 Sodium Chloride (1/2 NS 1000 ml Inj) 1,000 ml @ 0 mls/hr Q0M IV 12/16/16 09:28 (Kristel Arellano) Medical Decision Making MDM Remarks 66 y/o male recurrent falls, evidence of communicating hydrocephalus on Head CT , suspected NPH (Kristel Arellano) Plan Plan Remarks for lumbar draining today, drain CSF per protocol, follow up PT nonchemical dvt prophylaxis in view of lumbar drain (Kristel Arellano) Attending Statement The exam, history, and the medical decision-making described in the above note were completed with the assistance of the mid-level provider. I reviewed and agree with the findings presented. I attest that I had a [id number] encounter with the patient on the same day, and personally performed and documented my assessment and findings in the medical record. (Saeid Partida MD) Kristel Arellano Dec 16, 2016 15:33 Saeid Partida MD Dec 17, 2016 16:16
--- NOTE | 2016-12-16 15:40 | PD.RAD ---
Post Procedure Progress Note Pre Procedure Diagnosis: (1) Abnormal head CT (2) Gait instability Post Procedure Diagnosis: (1) Abnormal head CT (2) Gait instability (3) Frequent falls Procedure Date: Dec 16, 2016 Supervising Radiologist: Jose Carlos Moore Proceduralist/Assist: Minda Grover, RT(R)(CV), Irena Pittman RT(R)() Anesthesia: Local, Analgesia Plan of Activity Patient to Unit: ROPU Patient Condition: Good See PACS Report for procedural detail/treatment Spinal Procedure Lumbar Drain L3-L4 Fluid Removal (CCs): 19 Fluid Description: Clear Puncture Time: 14:55 Findings: LD tip at T-10 Jose Carlos Moore MD Dec 16, 2016 15:40
[2016-12-16 18:47] LABS: GROSS BLOOD TUBE #1 TRACE (0); SUPERNATE COLOR TUBE #1 CLEAR (CLEAR)
[2016-12-16 18:48] LABS: CSF LYMPHOCYTES 100 %; CSF NEUTROPHILS 0 %; GROSS BLOOD TUBE #2 TRACE (0); GROSS BLOOD TUBE #3 TRACE (0); GROSS BLOOD TUBE #4 TR (0); SUPERNATE COLOR TUBE #2 CLEAR (CLEAR); SUPERNATE COLOR TUBE #3 CLEAR (CLEAR); SUPERNATE COLOR TUBE #4 CLEAR (CLEAR); WBC TUBE #4 4 /MM3 (0-10)
--- NOTE | 2016-12-16 19:46 | RADRPT ---
EXAM DATE/TIME: 12/16/2016 14:45 [facility] COMPARISON: No previous studies available for comparison. INDICATIONS : Patient is in need of placement of a lumbar drain to evaluate for NPH. MEDICAL HISTORY : History of dementia, HTN. SURGIAL HISTORY : Unknown. ENCOUNTER: Initial ACUITY: 1 day PAIN SCORE: 0/10 LOCATION: LUMBAR PUNCTURE TIME: 1455 hours FLUORO TIME: 3.2 minutes IMAGE SERIES: 2 LEVEL: Tip of lumbar drain was placed at T10 FLUID: 19 cc of clear CSF was collected and sent to the laboratory for analysis. MEDICATION(S): 1.) 100 mcg fentanyl (Sublimaze) IV 2.) 1 g Vancomycin IV DEVICE(S): 1.) 5 Turkmen lumbar drain catheter PROCEDURE : 1. Fluoroscopically guided lumbar drain placement. 2. Conscious sedation with continuous EKG and oximetry monitoring. The risks, benefits and alternatives to the procedure were explained and verbal and written consent w as obtained. The site was prepped in sterile fashion. Full sterile technique was used, including ca p, mask, sterile gloves and gown and a large sterile sheet. Hand hygiene and 2% chlorhexidine and/or betadine/alcohol prep was utilized per protocol for cutaneous antisepsis. The skin and subcutaneous tissues were infiltrated with local anesthetic solution. With fluoroscopic guidance the lumbar thecal sac was punctured with a 14 gauge Touhy needle and a lum bar drain was placed with its tip at the level as described above and the catheter was sutured in nicole ce. CSF was identified returning from the catheter at the termination of the procedure. Conscious sedation was performed with the prescribed dosages and duration as above in the presence of an independent trained radiology nurse to assist in the monitoring of the patient. EKG and oximetry remained stable throughout the procedure. The patient tolerated the procedure well and there were n o complications. The patient was sent to post anesthesia recovery in stable condition. CONCLUSION: Uncomplicated lumbar drain placement as above. Jose Carlos Moore MD on December 16, 2016 at 19:44 Board Certified Radiologist. This report was verified electronically.
[2016-12-17] VITALS (10 sets, daily range): BP systolic 121–155; BP diastolic 69–81; PULSE 57–90; RESP 18–20; TEMP 96.9–98.2; O2SAT 98–100
[2016-12-17] MEDS: PIPERACIL-TAZO 3.375 GM PREMIX 50 ML IV SCH ×4 (01:37→20:21)
[2016-12-17] MEDS: INSULIN ASPART SUPPLEMENTAL SCALE SQ SCH ×4 (07:00→21:00)
[2016-12-17 08:03] LABS: AUTOMATED NEUTROPHIL # 6.4 TH/MM3 (1.8-7.7); BASOPHIL # 0.1 TH/MM3 (0-0.2); BASOPHIL % 0.7 % (0.0-2.0); EOSINOPHIL # 0.2 TH/MM3 (0-0.4); EOSINOPHIL % 1.8 % (0.0-4.0); HEMATOCRIT 35.8 % (39.0-51.0); HEMO FLAGS DIFF FINAL; LYMPHOCYTE # 2.5 TH/MM3 (1.0-4.8); MEAN CORPUSCULAR HGB CONC 33.7 % (32.0-36.0); MONO % 8.4 % (0.0-8.0); NEUT % 64.1 % (16.0-70.0); PLATELET COUNT 364 TH/MM3 (150-450); RED CELL DISTRIBUTION WIDTH 12.3 % (11.6-17.2); WHITE BLOOD COUNT 9.9 TH/MM3 (4.0-11.0)
[2016-12-17 08:25] LABS: BICARBONATE 27.8 MEQ/L (21.0-32.0); MAGNESIUM 2.1 MG/DL (1.5-2.5); POTASSIUM 3.8 MEQ/L (3.5-5.1)
[2016-12-17] MEDS: SODIUM CHLORIDE 0.9% FLUSH 10 ML FLUSH IV FLUSH SCH ×2 (10:04→20:22)
[2016-12-17] MEDS: LISINOPRIL 20 MG TAB PO SCH (10:04)
--- NOTE | 2016-12-17 12:29 | HHI.NSPN ---
(Kristel Arellano) Note Status Status: Progress Note (Kristel Arellano) Interval History Interval History Mr. Burris is a 66-year-old male with history of HTN and Dementia who was brought to [place] ER for recurrent falls. 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 Neurosurgical consultation was requested 12/15: he reports no changes in his gait, Dr. Partida again offered trial with lumbar drain, pt states he does not want to have it done today and wants to relax 12/16: today he is ready for lumbar drain placement 12/17: lumbar drain was pulled out last night (Kristel Arellano) Labs, Micro, & Vital Signs Results Date Time Temp Pulse Resp B/P Pulse Ox O2 Delivery O2 Flow Rate FiO2 12/17/16 11:40 98.1 89 18 155/81 100 12/17/16 07:45 96.9 70 18 142/69 100 12/17/16 05:35 18 12/17/16 04:48 98.2 73 20 153/76 100 12/17/16 01:35 18 12/17/16 00:11 97.8 64 19 121/71 98 12/16/16 22:30 68 12/16/16 21:40 97.4 109 20 158/92 100 12/16/16 20:54 20 12/16/16 18:00 96.2 82 19 183/99 100 12/16/16 16:05 67 18 137/74 99 12/16/16 15:40 64 20 108/62 99 12/16/16 15:25 98.0 79 20 142/76 100 12/17/16 07:00 Intake Total 720 ml Output Total 1650 ml Balance -930 ml Constitutional Vital Signs Date Time Temp Pulse Resp B/P Pulse Ox O2 Delivery O2 Flow Rate FiO2 12/17/16 11:40 98.1 89 18 155/81 100 12/17/16 07:45 96.9 70 18 142/69 100 12/17/16 05:35 18 12/17/16 04:48 98.2 73 20 153/76 100 12/17/16 01:35 18 12/17/16 00:11 97.8 64 19 121/71 98 12/16/16 22:30 68 12/16/16 21:40 97.4 109 20 158/92 100 12/16/16 20:54 20 12/16/16 18:00 96.2 82 19 183/99 100 12/16/16 16:05 67 18 137/74 99 12/16/16 15:40 64 20 108/62 99 12/16/16 15:25 98.0 79 20 142/76 100 12/17/16 07:00 Intake Total 720 ml Output Total 1650 ml Balance -930 ml (Kristel Arellano) Review of Systems/Exam Exam Mr Burris is alert, awake and oriented to time, place and person. Speech is fluent. Cranial nerve examination demonstrates the pupils to be equal, round, and reactive to light. Extra-ocular movements are intact. Facial motor and sensory function are normal and symmetrical. Gross hearing is intact, bilaterally. The uvula is midline and elevates symmetrically with the soft palate. Sternocleidomastoid and trapezius muscles have normal and symmetrical strength. Other cranial nerves are intact. Neck is soft and supple. Cervical spine has a good range of motion in anterior flexion, extension, lateral bending, and rotation without pain. There is no tenderness to palpation to the spinous processes or paraspinal muscles. Muscle testing reveals normal bulk and tone overall without rigidity, spasticity , fasciculations, or atrophy. Muscle strength is 5/5 in all muscle groups of both upper extremities including deltoid, biceps, triceps, brachioradialis, wrist extension and production lapping machine operator. In the lower extremities, strength is 5/5 in both iliopsoas, quadriceps, hamstrings, plantar flexion, dorsiflexion, and extensor hallicus longus. Sensory examination is intact to light touch and sharp/dull discrimination in both the upper and lower extremities, symmetrically. Deep tendon reflexes are 2+ and symmetrical in the biceps, triceps, and brachioradialis, bilaterally, in the upper extremities. In the lower extremities , the patellar and Achilles are 2+, bilaterally. There is a bilateral plantar flexion response. Hoffmanns sign is negative. There is no clonus or other abnormal reflexes noted. Cerebellar examination is intact to [id number] test, rapid rhythmic alternating motion. There is no dysmetria, dysdiadochokinesia, truncal ataxia ( Kristel Arellano) Medications Current Medications Current Medications Medications (Trade) Dose Ordered Sig/Sherita Route PRN Reason Start Time Stop Time Status Last Admin Dose Admin Sodium Chloride (NS Flush) 2 ml UNSCH PRN IV FLUSH FLUSH AFTER USING IV ACCESS 12/13/16 01:45 Sodium Chloride (NS Flush) 2 ml BID IV FLUSH 12/13/16 09:00 12/17/16 10:04 Ondansetron HCl (Zofran Inj) 4 mg Q6H PRN IVP NAUSEA OR VOMITING 12/13/16 01:45 Bisacodyl (Dulcolax Supp) 10 mg DAILY PRN RECTAL CONSTIPATION 12/13/16 01:45 Acetaminophen (Tylenol) 650 mg Q6H PRN PO FEVER/PAIN SCALE 1 TO 2 12/13/16 01:45 Acetaminophen/ Hydrocodone Bitart ([place] 5-325 Mg) 1 tab Q4H PRN PO PAIN SCALE 3 TO 5 12/13/16 01:45 Morphine Sulfate (Morphine Inj) 2 mg Q3H PRN IV Pain 6-10 12/13/16 01:45 Dextrose (D50w (Vial) Inj) 25 ml UNSCH PRN IV PUSH HYPOGLYCEMIA-SEE COMMENTS 12/13/16 01:45 Glucagon 1 mg 1 mg UNSCH PRN OTHER HYPOGLYCEMIA-SEE COMMENTS 12/13/16 01:45 Piperacillin Sod/ Tazobactam Sod (Zosyn 3.375 Gm Premix) 50 ml @ 100 mls/hr Q6H IV 12/13/16 08:00 12/17/16 10:04 Lisinopril 20 mg 20 mg DAILY PO 12/15/16 09:00 12/17/16 10:04 Sodium Chloride (1/2 NS 1000 ml Inj) 1,000 ml @ 0 mls/hr Q0M IV 12/16/16 09:28 (Kristel Arellano) Medical Decision Making MDM Remarks 66 y/o male recurrent falls, evidence of communicating hydrocephalus on Head CT , suspected NPH (Kristel Arellano) Plan Plan Remarks for reinsertion of lumbar draint today drain CSF per protocol, follow up PT nonchemical dvt prophylaxis in view of lumbar drain (Kristel Arellano) Attending Statement Will attempt placement of a new lumbar drain. Respiratory. Continue pulmonary toilette, nasotracheal suction, and breathing treatments with nebulizers. daily PT and OT Nutrition. Continue Oral diet Renal. Renal Insufficiency: Creatinine 1.34, no previous labs for comparison. GFR 65. UA negative, monitor closely urine output, BUN and creatinine Endocrine. Monitor serial Acu checks and SSI for tight control ID Leukocytosis, no clear source of infection. Monitor for signs of infection Continue Protonix for stress ulcer prophylaxis Continue Yonathan hose and SCD's for DVT prophylaxis The exam, history, and the medical decision-making described in the above note were completed with the assistance of the mid-level provider. I reviewed and agree with the findings presented. I attest that I had a [id number] encounter with the patient on the same day, and personally performed and documented my assessment and findings in the medical record. (Saeid Partida MD) Kristel Arellano Dec 17, 2016 12:29 Saeid Partida MD Dec 17, 2016 16:22
--- NOTE | 2016-12-17 14:53 | HHI.PR ---
Subjective Remarks He is resting in bed at this time and really admits to no adverse changes. He states that he is very sorry for pulling out the drain. He is looking forward to finding out if he can be helped by a shunt. He otherwise reports that his appetite is very good. Objective - Vital Signs Date Time Temp Pulse Resp B/P Pulse Ox O2 Delivery O2 Flow Rate FiO2 12/17/16 13:35 57 12/17/16 11:40 98.1 89 18 155/81 100 12/17/16 07:45 96.9 70 18 142/69 100 12/17/16 05:35 18 12/17/16 04:48 98.2 73 20 153/76 100 12/17/16 01:35 18 12/17/16 00:11 97.8 64 19 121/71 98 12/16/16 22:30 68 12/16/16 21:40 97.4 109 20 158/92 100 12/16/16 20:54 20 12/16/16 18:00 96.2 82 19 183/99 100 12/16/16 16:05 67 18 137/74 99 12/16/16 15:40 64 20 108/62 99 12/16/16 15:25 98.0 79 20 142/76 100 I/O 12/16/16 12/16/16 12/16/16 12/17/16 12/17/16 12/17/16 07:00 15:00 23:00 07:00 15:00 23:00 Intake Total 480 ml 240 ml 720 ml Output Total 1350 ml 300 ml 350 ml Balance 480 ml -1110 ml -300 ml 370 ml Intake Oral 480 ml 240 ml 720 ml Output Urine Total 1350 ml 300 ml 350 ml Stool Total 0 ml # Voids 5 # Bowel Movements 0 0 Result Diagram: 12/17/16 0702 12/17/16 0702 Objective Remarks GENERAL: Alert and in no distress. SKIN: Warm and dry. HEAD: Normocephalic. EYES: No scleral icterus. No injection or drainage. NECK: Supple, trachea midline. No JVD or lymphadenopathy. CARDIOVASCULAR: Regular rate and rhythm without murmurs, gallops, or rubs. RESPIRATORY: Breath sounds equal bilaterally. No accessory muscle use. GASTROINTESTINAL: Abdomen soft, non-tender, nondistended. MUSCULOSKELETAL: No cyanosis, or edema. BACK: Nontender without obvious deformity. No CVA tenderness. A/P Assessment and Plan ASSESSMENT 1. Normal Pressure Hydrocephalus. 2. Rhabdomyolysis. 3. Multiple Falls. 4. Leukocytosis. 5. Sinus Tachycardia. 6. Hypertension. 7. Chronic Ataxic Gait. PLAN 1. Decision is made to have the drain reinserted. 2. Neurosurgery continues with treatment plan. 3. Continue good dietary intake. 4. Continue with Physical Therapy. 5. DVT and PE prophylaxis. Alek Cui MD Dec 17, 2016 14:53
[2016-12-18] VITALS (7 sets, daily range): BP systolic 123–145; BP diastolic 58–78; PULSE 61–96; RESP 16–20; TEMP 96.5–98.5; O2SAT 99–100
[2016-12-18] MEDS: PIPERACIL-TAZO 3.375 GM PREMIX 50 ML IV SCH ×4 (02:16→21:27)
[2016-12-18] MEDS: INSULIN ASPART SUPPLEMENTAL SCALE SQ SCH ×4 (07:00→21:00)
[2016-12-18] MEDS: SODIUM CHLORIDE 0.9% FLUSH 10 ML FLUSH IV FLUSH SCH ×2 (09:00→21:00)
[2016-12-18] MEDS: LISINOPRIL 20 MG TAB PO SCH (09:46)
[2016-12-18] MEDS ORDERED: VANCOMYCIN INJ 1,000 MG in SODIUM CHLOR 0.9% 250 ML INJ 250 ML IV ONE (18:00)
[2016-12-18] MEDS ORDERED: SODIUM CHLOR 0.45% 1000 ML INJ 1,000 ML IV SCH (18:00)
--- NOTE | 2016-12-18 18:14 | HHI.PR ---
Subjective Remarks He denies any new adverse changes. He still does not have the reinsertion of the lumbar drain. He continues to work with the physical therapist. No complaint of headache, nausea or emesis. Objective - Vital Signs Date Time Temp Pulse Resp B/P Pulse Ox O2 Delivery O2 Flow Rate FiO2 12/18/16 16:15 97.5 88 18 135/61 100 12/18/16 12:33 97.9 96 18 128/76 100 12/18/16 08:21 98.3 77 18 135/78 99 12/18/16 04:15 97.1 69 16 123/76 100 12/18/16 01:45 16 12/18/16 00:00 98.5 61 16 139/70 100 12/17/16 20:30 97.9 80 18 140/69 100 12/17/16 20:00 90 I/O 12/17/16 12/17/16 12/17/16 12/18/16 12/18/16 12/18/16 07:00 15:00 23:00 07:00 15:00 23:00 Intake Total 720 ml 600 ml 0 ml 480 ml Output Total 300 ml 350 ml 375 ml 125 ml Balance -300 ml 370 ml 225 ml -125 ml 480 ml Intake Oral 720 ml 600 ml 0 ml 480 ml Output Urine Total 300 ml 350 ml 375 ml 125 ml Stool Total 0 ml # Voids 2 # Bowel Movements 0 0 1 Result Diagram: 12/17/1670112/17/16701 Objective Remarks GENERAL: Alert and appears comfortable while eating his dinner. SKIN: Warm and dry. HEAD: Normocephalic. EYES: No scleral icterus. No injection or drainage. NECK: Supple, trachea midline. No JVD or lymphadenopathy. CARDIOVASCULAR: Regular rate and rhythm without murmurs, gallops, or rubs. RESPIRATORY: Breath sounds equal bilaterally. No accessory muscle use. GASTROINTESTINAL: Abdomen soft, non-tender, nondistended. MUSCULOSKELETAL: No cyanosis, or edema. BACK: Nontender without obvious deformity. No CVA tenderness. A/P Assessment and Plan ASSESSMENT 1. Normal Pressure Hydrocephalus. 2. Rhabdomyolysis. 3. Multiple Falls. 4. Leukocytosis. 5. Sinus Tachycardia. 6. Hypertension. 7. Chronic Ataxic Gait. PLAN 1. Plan is to have the lumbar drain reinserted. 2. Neurosurgery continues to follow. 3. Continue with Physical Therapy. 4. Follow up labs as needed. 5. DVT and PE prophylaxis. Alek Cui MD Dec 18, 2016 18:14
[2016-12-18 20:09] LABS: APTT (PATIENT) 26.7 SEC (24.3-30.1); PROTHROMBIN TIME - PATIENT 10.7 SEC (9.8-11.6)
[2016-12-18 20:22] LABS: BASOPHIL % 0.3 % (0.0-2.0); EOSINOPHIL # 0.2 TH/MM3 (0-0.4); EOSINOPHIL % 1.2 % (0.0-4.0); HEMATOCRIT 34.1 % (39.0-51.0); HEMO FLAGS DIFF FINAL; LYMPH % 14.5 % (9.0-44.0); LYMPHOCYTE # 1.9 TH/MM3 (1.0-4.8); MEAN CELL VOLUME 92.8 FL (80.0-100.0); MEAN CORPUSCULAR HEMOGLOBIN 31.2 PG (27.0-34.0); MEAN CORPUSCULAR HGB CONC 33.6 % (32.0-36.0); MONO % 7.1 % (0.0-8.0); NEUT % 76.9 % (16.0-70.0); PLATELET COUNT 370 TH/MM3 (150-450); RED BLOOD COUNT 3.68 MIL/MM3 (4.50-5.90); RED CELL DISTRIBUTION WIDTH 12.5 % (11.6-17.2)
[2016-12-18 20:26] LABS: BICARBONATE 30.8 MEQ/L (21.0-32.0)
[2016-12-19] VITALS (9 sets, daily range): BP systolic 107–174; BP diastolic 55–82; PULSE 59–81; RESP 18–20; TEMP 96.3–98.6; O2SAT 94–100
[2016-12-19] MEDS: PIPERACIL-TAZO 3.375 GM PREMIX 50 ML IV SCH ×4 (02:50→20:45)
[2016-12-19] MEDS: INSULIN ASPART SUPPLEMENTAL SCALE SQ SCH ×4 (06:26→20:11)
[2016-12-19] MEDS: LISINOPRIL 20 MG TAB PO SCH (08:04)
[2016-12-19] MEDS: SODIUM CHLORIDE 0.9% FLUSH 10 ML FLUSH IV FLUSH SCH ×2 (08:05→20:45)
[2016-12-19] MEDS ORDERED: MIDAZOLAM HCL 5 MG/5 ML VIAL ONE (11:27)
[2016-12-19] MEDS ORDERED: fentaNYL CITRATE 250 MCG/5 ML AMP ONE (11:28)
--- NOTE | 2016-12-19 12:03 | PD.RAD ---
Post Procedure Progress Note Pre Procedure Diagnosis: (1) Gait instability Post Procedure Diagnosis: (1) Gait instability Procedure Date: Dec 19, 2016 Supervising Radiologist: Irwin Chavis Anesthesia: Local, Conscious Sedation Plan of Activity Patient to Unit: Nursing Unit Patient Condition: Good See PACS Report for procedural detail/treatment Spinal Procedure Lumbar Drain L2-L3 Fluid Description: Clear Puncture Time: 11:45 Findings: Tip placed at T7 Biopsy Additional Detail: OP 9cm H2O Irwin Chavis MD Dec 19, 2016 12:03
--- NOTE | 2016-12-19 12:30 | HHI.NSPN ---
(Kristel Arellano) Note Status Status: Progress Note (Saeid Partida MD) Interval History Interval History Mr. Burris is a 66-year-old male with history of HTN and Dementia who was brought to [facility] for recurrent falls. 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 Neurosurgical consultation was requested 12/15: he reports no changes in his gait, Dr. Partida again offered trial with lumbar drain, pt states he does not want to have it done today and wants to relax 12/16: today he is ready for lumbar drain placement 12/17: lumbar drain was pulled out last night 12/19: did not get lumbar drain placed yesterday, possibly today (Kristel Arellano) Labs, Micro, & Vital Signs Results Date Time Temp Pulse Resp B/P Pulse Ox O2 Delivery O2 Flow Rate FiO2 12/19/16 08:20 63 12/19/16 08:10 97.0 81 18 127/70 99 12/19/16 04:00 97.6 78 20 107/55 99 12/19/16 00:00 98.6 73 20 142/63 100 12/18/16 20:00 97.8 92 20 127/58 100 12/18/16 16:15 97.5 88 18 135/61 100 12/18/16 12:33 97.9 96 18 128/76 100 12/19/16 07:00 Intake Total 780 ml Output Total 350 ml Balance 430 ml Constitutional Vital Signs Date Time Temp Pulse Resp B/P Pulse Ox O2 Delivery O2 Flow Rate FiO2 12/19/16 08:20 63 12/19/16 08:10 97.0 81 18 127/70 99 12/19/16 04:00 97.6 78 20 107/55 99 12/19/16 00:00 98.6 73 20 142/63 100 12/18/16 20:00 97.8 92 20 127/58 100 12/18/16 16:15 97.5 88 18 135/61 100 12/18/16 12:33 97.9 96 18 128/76 100 12/19/16 07:00 Intake Total 780 ml Output Total 350 ml Balance 430 ml (Kristel Arellano) Medications Current Medications Current Medications Medications (Trade) Dose Ordered Sig/Sherita Route PRN Reason Start Time Stop Time Status Last Admin Dose Admin Sodium Chloride (NS Flush) 2 ml UNSCH PRN IV FLUSH FLUSH AFTER USING IV ACCESS 12/13/16 01:45 Sodium Chloride (NS Flush) 2 ml BID IV FLUSH 12/13/16 09:00 12/19/16 08:05 Ondansetron HCl (Zofran Inj) 4 mg Q6H PRN IVP NAUSEA OR VOMITING 12/13/16 01:45 Bisacodyl (Dulcolax Supp) 10 mg DAILY PRN RECTAL CONSTIPATION 12/13/16 01:45 Acetaminophen (Tylenol) 650 mg Q6H PRN PO FEVER/PAIN SCALE 1 TO 2 12/13/16 01:45 Acetaminophen/ Hydrocodone Bitart (Harrington 5-325 Mg) 1 tab Q4H PRN PO PAIN SCALE 3 TO 5 12/13/16 01:45 Morphine Sulfate (Morphine Inj) 2 mg Q3H PRN IV Pain 6-10 12/13/16 01:45 Dextrose (D50w (Vial) Inj) 25 ml UNSCH PRN IV PUSH HYPOGLYCEMIA-SEE COMMENTS 12/13/16 01:45 Glucagon 1 mg 1 mg UNSCH PRN OTHER HYPOGLYCEMIA-SEE COMMENTS 12/13/16 01:45 Piperacillin Sod/ Tazobactam Sod (Zosyn 3.375 Gm Premix) 50 ml @ 100 mls/hr Q6H IV 12/13/16 08:00 12/19/16 02:50 Lisinopril 20 mg 20 mg DAILY PO 12/15/16 09:00 12/19/16 08:04 Sodium Chloride 1,000 ml @ 0 mls/hr Q0M IV 12/16/16 09:28 Sodium Chloride (1/2 NS 1000 ml Inj) 1,000 ml @ 0 mls/hr Q0M IV 12/18/16 18:00 (Kristel Arellano) Medical Decision Making MDM Remarks 66 y/o male recurrent falls, evidence of communicating hydrocephalus on Head CT , suspected NPH (Kristel Arellano) Plan Plan Remarks awaiting replacement of lumbar drain for CSF drainage follow up PT assessment for gait improvements (Kristel Arellano) Attending Statement The exam, history, and the medical decision-making described in the above note were completed with the assistance of the mid-level provider. I reviewed and agree with the findings presented. I attest that I had a [id number] encounter with the patient on the same day, and personally performed and documented my assessment and findings in the medical record. (Saeid Partida MD) Kristel Arellano Dec 19, 2016 12:30 Saeid Partida MD Dec 19, 2016 14:14
--- NOTE | 2016-12-19 14:32 | RADRPT ---
EXAM DATE/TIME: 12/19/2016 11:21 [facility] COMPARISON: LUMBAR DRAINAGE, December 16, 2016, 14:45. INDICATIONS : Patient with normal pressure hydrocephalus in need of lumbar drain. MEDICAL HISTORY : HTN, Dementia, Gait problems SURGIAL HISTORY : Lumbar drain placement ENCOUNTER: Initial ACUITY: 1 week PAIN SCORE: 0/10 LUMBAR PUNCTURE TIME: 1145 hours FLUORO TIME: 4.9 minutes IMAGE SERIES: 2 SEDATION TIME: 20 minutes LEVEL: Tip of lumbar drain was placed at T7 OPENING PRESSURE: 9 cm of water MEDICATION(S): 1.) 2 mg midazolam (Versed) IV 2.) 100 mcg fentanyl (Sublimaze) IV DEVICE(S): 1.) 5 Palestinian lumbar drain catheter PROCEDURE : 1. Fluoroscopically guided lumbar drain placement. 2. Conscious sedation with continuous EKG and oximetry monitoring. The risks, benefits and alternatives to the procedure were explained and verbal and written consent w as obtained. The site was prepped in sterile fashion. Full sterile technique was used, including ca p, mask, sterile gloves and gown and a large sterile sheet. Hand hygiene and 2% chlorhexidine and/or betadine/alcohol prep was utilized per protocol for cutaneous antisepsis. The skin and subcutaneous tissues were infiltrated with local anesthetic solution. With fluoroscopic guidance the lumbar thecal sac was punctured with a 14 gauge Touhy needle and a lum bar drain was placed with its tip at the level as described above and the catheter was sutured in nicole ce. CSF was identified returning from the catheter at the termination of the procedure. Conscious sedation was performed with the prescribed dosages and duration as above in the presence of an independent trained radiology nurse to assist in the monitoring of the patient. EKG and oximetry remained stable throughout the procedure. The patient tolerated the procedure well and there were n o complications. The patient was sent to post anesthesia recovery in stable condition. CONCLUSION: Uncomplicated lumbar drain placement as above. Irwin Chavis MD on December 19, 2016 at 14:29 Board Certified Radiologist. This report was verified electronically.
[2016-12-20] VITALS (8 sets, daily range): BP systolic 129–158; BP diastolic 61–81; PULSE 59–82; RESP 18–20; TEMP 97.3–98.6; O2SAT 99–100
[2016-12-20] MEDS: PIPERACIL-TAZO 3.375 GM PREMIX 50 ML IV SCH ×4 (01:13→22:16)
[2016-12-20] MEDS: INSULIN ASPART SUPPLEMENTAL SCALE SQ SCH ×4 (06:34→21:00)
[2016-12-20 08:01] LABS: AUTOMATED NEUTROPHIL # 7.2 TH/MM3 (1.8-7.7); BASOPHIL # 0.1 TH/MM3 (0-0.2); EOSINOPHIL # 0.2 TH/MM3 (0-0.4); EOSINOPHIL % 1.5 % (0.0-4.0); HEMATOCRIT 33.3 % (39.0-51.0); HEMO FLAGS DIFF FINAL; LYMPH % 17.5 % (9.0-44.0); LYMPHOCYTE # 1.8 TH/MM3 (1.0-4.8); MEAN CORPUSCULAR HEMOGLOBIN 30.4 PG (27.0-34.0); MEAN CORPUSCULAR HGB CONC 32.7 % (32.0-36.0); MONO % 9.1 % (0.0-8.0); NEUT % 70.9 % (16.0-70.0); PLATELET COUNT 353 TH/MM3 (150-450); RED BLOOD COUNT 3.58 MIL/MM3 (4.50-5.90); RED CELL DISTRIBUTION WIDTH 12.6 % (11.6-17.2); WHITE BLOOD COUNT 10.2 TH/MM3 (4.0-11.0)
[2016-12-20 08:33] LABS: BICARBONATE 26.2 MEQ/L (21.0-32.0); MAGNESIUM 2.1 MG/DL (1.5-2.5); POTASSIUM 3.8 MEQ/L (3.5-5.1)
[2016-12-20] MEDS: SODIUM CHLORIDE 0.9% FLUSH 10 ML FLUSH IV FLUSH SCH ×2 (08:54→21:00)
[2016-12-20] MEDS: LISINOPRIL 20 MG TAB PO SCH (08:54)
--- NOTE | 2016-12-20 16:59 | HHI.NSPN ---
History Chief Complaint: no complaints Interval History 66-year-old male with history of dementia, gait difficulty. CT scan with hydrocephalus, possible NPH Lumbar subarachnoid drain placed earlier this week and pulled out Exam Results Vital Signs Date Time Temp Pulse Resp B/P Pulse Ox O2 Delivery O2 Flow Rate FiO2 12/20/16 16:19 98.6 71 18 156/74 99 12/20/16 07:00 Room Air 12/19/16 12:20 2.00 Intake and Output 12/19/16 12/19/16 12/20/16 08:00 16:00 00:00 Intake Total 60 ml 240 ml Output Total 200 ml 220 ml 540 ml Balance -140 ml -220 ml -300 ml Physical Examination Awake and alert Speech clear and appropriate Answers all questions appropriately Follows commands well Extraocular movements intact Sensory light touch intact in all extremities Motor within normal limits all extremities Lab, Micro, Other Results Laboratory Tests Test 12/20/16 07:40 White Blood Count 10.2 TH/MM3 Red Blood Count 3.58 MIL/MM3 Hemoglobin 10.9 GM/DL Hematocrit 33.3 % Mean Corpuscular Volume 93.0 FL Mean Corpuscular Hemoglobin 30.4 PG Mean Corpuscular Hemoglobin 32.7 % Concent Red Cell Distribution Width 12.6 % Platelet Count 353 TH/MM3 Mean Platelet Volume 7.2 FL Neutrophils (%) (Auto) 70.9 % Lymphocytes (%) (Auto) 17.5 % Monocytes (%) (Auto) 9.1 % Eosinophils (%) (Auto) 1.5 % Basophils (%) (Auto) 1.0 % Neutrophils # (Auto) 7.2 TH/MM3 Lymphocytes # (Auto) 1.8 TH/MM3 Monocytes # (Auto) 0.9 TH/MM3 Eosinophils # (Auto) 0.2 TH/MM3 Basophils # (Auto) 0.1 TH/MM3 CBC Comment DIFF FINAL Differential Comment Sodium Level 141 MEQ/L Potassium Level 3.8 MEQ/L Chloride Level 107 MEQ/L Carbon Dioxide Level 26.2 MEQ/L Anion Gap 8 MEQ/L Blood Urea Nitrogen 16 MG/DL Creatinine 1.09 MG/DL Estimat Glomerular Filtration 83 ML/MIN Rate Random Glucose 83 MG/DL Calcium Level 8.9 MG/DL Magnesium Level 2.1 MG/DL Medical Decision Making Impression and Plan Impression: 1. Hydrocephalus, possible NPH 2. Dementia Plan: Findings discussed with patient Await replacement lumbar subarachnoid drain on 12/22/16. Sanjeev Kaur MD Dec 20, 2016 16:59
--- NOTE | 2016-12-20 17:19 | HHI.PR ---
Subjective Remarks He is sitting up in the bed and eating his dinner. He denies any major adverse symptoms. He states he is working hard with the physical therapist. Objective - Vital Signs Date Time Temp Pulse Resp B/P Pulse Ox O2 Delivery O2 Flow Rate FiO2 12/20/16 16:19 98.6 71 18 156/74 99 12/20/16 12:23 97.9 72 18 134/67 100 12/20/16 08:08 97.7 82 19 152/81 99 12/20/16 08:00 70 12/20/16 07:00 Room Air 12/20/16 04:00 97.6 71 20 129/61 99 12/20/16 00:00 98.0 63 20 129/61 99 12/19/16 20:30 73 12/19/16 20:30 Room Air I/O 12/19/16 12/19/16 12/19/16 12/20/16 12/20/16 12/20/16 07:00 15:00 23:00 07:00 15:00 23:00 Intake Total 60 ml 240 ml 120 ml 50 ml Output Total 200 ml 220 ml 540 ml 370 ml 50 ml Balance -140 ml -220 ml -300 ml -250 ml 0 ml Intake Oral 60 ml 240 ml 120 ml IV Total 50 ml Output Urine Total 200 ml 200 ml 500 ml 300 ml Drainage Total 20 ml 40 ml 70 ml 50 ml # Voids 1 1 # Bowel Movements 0 1 0 1 Result Diagram: 12/20/1673912/20/1640 Objective Remarks GENERAL: Alert and in no acute distress. SKIN: Warm and dry. HEAD: Normocephalic. Atraumatic. EYES: No scleral icterus. No injection or drainage. NECK: Supple, trachea midline. No JVD or lymphadenopathy. CARDIOVASCULAR: Regular rate and rhythm without murmurs, gallops, or rubs. RESPIRATORY: Breath sounds equal bilaterally. No accessory muscle use. GASTROINTESTINAL: Abdomen soft, non-tender, nondistended. MUSCULOSKELETAL: Free range of motion of limbs. No cyanosis, or edema. BACK: Nontender without obvious deformity. No CVA tenderness. A/P Assessment and Plan ASSESSMENT 1. Normal Pressure Hydrocephalus. 2. Rhabdomyolysis. 3. Multiple Falls. 4. Leukocytosis. 5. Sinus Tachycardia. 6. Hypertension. 7. Chronic Ataxic Gait. PLAN 1. He is to continue with the lumbar drain monitoring. 2. Neurosurgery continues to follow and to render disposition. 3. Continue with Physical Therapy. 4. Follow up labs as needed. 5. DVT and PE prophylaxis. Alek Cui MD Dec 20, 2016 17:19
[2016-12-20] MEDS: ACETAMINOPHEN/HYDROcodone 325 MG/5 MG TAB PO PRN (22:16)
[2016-12-21] VITALS (8 sets, daily range): BP systolic 108–143; BP diastolic 63–75; PULSE 59–106; RESP 18–22; TEMP 97–97.8; O2SAT 93–100
[2016-12-21] MEDS: PIPERACIL-TAZO 3.375 GM PREMIX 50 ML IV SCH ×4 (02:00→21:31)
[2016-12-21] MEDS: INSULIN ASPART SUPPLEMENTAL SCALE SQ SCH ×4 (06:19→21:00)
[2016-12-21] MEDS: SODIUM CHLORIDE 0.9% FLUSH 10 ML FLUSH IV FLUSH SCH ×2 (09:00→21:00)
--- NOTE | 2016-12-21 12:40 | HHI.PR ---
Subjective Remarks He does not report any adverse symptoms. He is awaiting the disposition of Neurosurgery regarding the drain results. Objective - Vital Signs Date Time Temp Pulse Resp B/P Pulse Ox O2 Delivery O2 Flow Rate FiO2 12/21/16 12:08 97.2 78 18 108/63 93 12/21/16 08:37 97.6 71 19 119/68 99 12/21/16 04:00 97.2 73 18 140/70 100 12/21/16 00:00 97.0 68 18 138/67 99 12/20/16 20:00 97.3 72 18 158/72 100 12/20/16 19:00 59 12/20/16 16:19 98.6 71 18 156/74 99 I/O 12/20/16 12/20/16 12/20/16 12/21/16 12/21/16 12/21/16 07:00 15:00 23:00 07:00 15:00 23:00 Intake Total 120 ml 50 ml Output Total 370 ml 50 ml Balance -250 ml 0 ml Intake Oral 120 ml IV Total 50 ml Output Urine Total 300 ml Drainage Total 70 ml 50 ml # Voids 1 2 # Bowel Movements 0 1 Result Diagram: 12/20/16 0740 12/20/16 0740 Objective Remarks GENERAL: He is alert and lying in bed comfortably. SKIN: Warm and dry. HEAD: Normocephalic. EYES: No scleral icterus. No injection or drainage. NECK: Supple, trachea midline. No JVD or lymphadenopathy. CARDIOVASCULAR: Regular rate and rhythm without murmurs, gallops, or rubs. RESPIRATORY: Breath sounds equal bilaterally. No accessory muscle use. GASTROINTESTINAL: Abdomen soft, non-tender, nondistended. MUSCULOSKELETAL: No cyanosis, or edema. BACK: Nontender without obvious deformity. No CVA tenderness. A/P Assessment and Plan ASSESSMENT 1. Normal Pressure Hydrocephalus. 2. Rhabdomyolysis. 3. Multiple Falls. 4. Leukocytosis. 5. Sinus Tachycardia. 6. Hypertension. 7. Chronic Ataxic Gait. PLAN 1. He continues with the lumbar drain monitoring. 2. Neurosurgery is to render disposition tomorrow. 3. Continue with Physical Therapy. 4. Follow up labs as needed. 5. DVT and PE prophylaxis. Alek Cui MD Dec 21, 2016 12:40
--- NOTE | 2016-12-21 19:01 | HHI.NSPN ---
History Chief Complaint: no complaints Interval History 66-year-old male with history of dementia, gait difficulty. CT scan with hydrocephalus, possible NPH Lumbar subarachnoid drain placed earlier this week and pulled out Exam Results Vital Signs Date Time Temp Pulse Resp B/P Pulse Ox O2 Delivery O2 Flow Rate FiO2 12/21/16 16:32 97.8 84 18 141/75 100 12/20/16 07:00 Room Air 12/19/16 12:20 2.00 Intake and Output 12/20/16 12/20/16 12/21/16 08:00 16:00 00:00 Intake Total 120 ml 50 ml Output Total 370 ml 50 ml Balance -250 ml 0 ml Physical Examination Awake and alert Speech clear and appropriate Answers all questions appropriately Follows commands well Extraocular movements intact Sensory light touch intact in all extremities Motor within normal limits all extremities Medical Decision Making Impression and Plan Impression: 1. Hydrocephalus, possible NPH 2. Dementia Plan: Findings discussed with patient Await replacement lumbar subarachnoid drain on 12/22/16. Sanjeev Kaur MD Dec 21, 2016 19:01
[2016-12-21] MEDS: ACETAMINOPHEN/HYDROcodone 325 MG/5 MG TAB PO PRN (21:33)
[2016-12-22] VITALS (7 sets, daily range): BP systolic 118–147; BP diastolic 64–76; PULSE 66–85; RESP 18–20; TEMP 96.2–98.1; O2SAT 90–100
[2016-12-22] MEDS: PIPERACIL-TAZO 3.375 GM PREMIX 50 ML IV SCH ×4 (02:00→21:09)
[2016-12-22] MEDS: INSULIN ASPART SUPPLEMENTAL SCALE SQ SCH ×4 (07:00→21:00)
[2016-12-22] MEDS: SODIUM CHLORIDE 0.9% FLUSH 10 ML FLUSH IV FLUSH SCH ×2 (09:00→21:07)
[2016-12-22] MEDS: LISINOPRIL 20 MG TAB PO SCH ×2 (09:27→09:35)
--- NOTE | 2016-12-22 17:42 | HHI.NSPN ---
History Chief Complaint: no complaints Interval History 12/22/16: Pt has not had any PT since lumbar spinal drain replaced. He refused PT today. He is resting comfortably in bed. Denies headaches. Review of Systems General: Negative for: fever, chills, insomnia Respiratory: Negative for: shortness of breath, cough, sputum Cardiovascular: Negative for: chest pain Gastrointestinal: Negative for: nausea, vomitting, diarrhea, constipation Exam Results Vital Signs Date Time Temp Pulse Resp B/P Pulse Ox O2 Delivery O2 Flow Rate FiO2 12/22/16 17:00 97.5 80 20 147/70 96 12/22/16 08:00 Room Air 12/19/16 12:20 2.00 Intake and Output 12/21/16 12/21/16 12/22/16 08:00 16:00 00:00 Intake Total 360 ml 100 ml Output Total 600 ml Balance 360 ml -500 ml Physical Examination Resp: CTA bilaterally Heart: NSR no murmurs Abd: Soft positive bs Muscle: Moves all 4 extremities well. Neuro: Pt awake and alert. Follows commands well. Speech clear. States he is ambulating but PT node states he refused. Lumbar spinal drain in place draining clear CSF. Lab, Micro, Other Results Last Impressions Lumbar Puncture Fluoroscopy 12/19/16 0000 Signed Impressions: Service Date/Time: Monday, December 19, 2016 11:21 - CONCLUSION: Uncomplicated lumbar drain placement as above. Irwin Chavis MD Chest X-Ray 12/13/16 0046 Signed Impressions: Service Date/Time: Tuesday, December 13, 2016 00:58 - CONCLUSION: Cardiomegaly. No acute cardiopulmonary disease. Mata Long MD Brain MRI 12/13/16 0000 Signed Impressions: Service Date/Time: Tuesday, December 13, 2016 15:06 - CONCLUSION: 1. Mild hydrocephalus with chronic appearing moderate periventricular white matter ischemic changes. No recent infarct. Jun Pena MD Head CT 12/12/16 0000 Signed Impressions: Service Date/Time: Monday, December 12, 2016 23:16 - CONCLUSION: 1. No evidence of acute intracranial pathology. Chronic ischemic changes as above. Possible normal pressure hydrocephalus. Correlation with clinical findings is necessary. Mata Long MD 12/21/16 12/21/16 12/22/16 15:00 23:00 07:00 Intake Total 360 ml 100 ml Output Total 600 ml Balance 360 ml -500 ml Intake Oral 360 ml IV Total 100 ml Output Urine Total 500 ml Drainage Total 100 ml Medical Decision Making Impression and Plan 66 y/o M s/p lumbar spinal drain placement for evaluation of NPH. P: PT in the AM then remove lumbar spinal drain. He has had CSF drainage for tomorrow will be 4th day since drain replaced. After drain removed pt will need to lay flat for 6 hours. Pt will then be discharged if no drainage and will follow up with Dr. Partida. We usually have pts follow up a couple weeks after drain placement to see if his symptoms return but he can contact Dr. Partida' office for a follow up evaluation when he returns next week. Piotr Golden Dec 22, 2016 17:42
--- NOTE | 2016-12-22 19:31 | HHI.PR ---
Subjective Remarks He is sitting up in the bed at this time. He states he is ready to eat a snack. He is without any other adverse findings. Objective - Vital Signs Date Time Temp Pulse Resp B/P Pulse Ox O2 Delivery O2 Flow Rate FiO2 12/22/16 17:00 97.5 80 20 147/70 96 12/22/16 12:39 97.7 68 20 147/76 99 12/22/16 08:28 98.0 70 20 142/69 99 12/22/16 08:00 Room Air 12/22/16 04:00 96.5 72 20 126/68 100 12/22/16 04:00 96.2 70 20 129/68 90 12/22/16 00:00 98.1 66 18 134/73 98 12/21/16 20:00 97.6 86 22 143/68 99 I/O 12/21/16 12/21/16 12/21/16 12/22/16 12/22/16 12/22/16 07:00 15:00 23:00 07:00 15:00 23:00 Intake Total 360 ml 100 ml 720 ml Output Total 600 ml 155 ml Balance 360 ml -500 ml -155 ml 720 ml Intake Oral 360 ml 720 ml IV Total 100 ml Output Urine Total 500 ml Drainage Total 100 ml 155 ml # Voids 2 3 # Bowel Movements 1 Result Diagram: 12/20/1673912/20/16739 Other Results GENERAL: Alert and appears in no acute distress. SKIN: Warm and dry. HEAD: Normocephalic. Atraumatic. EYES: No scleral icterus. No injection or drainage. NECK: Supple, trachea midline. No JVD or lymphadenopathy. CARDIOVASCULAR: Regular rate and rhythm without murmurs, gallops, or rubs. RESPIRATORY: Breath sounds equal bilaterally. No accessory muscle use. GASTROINTESTINAL: Abdomen soft, non-tender, nondistended. MUSCULOSKELETAL: No cyanosis, or edema. BACK: Nontender without obvious deformity. No CVA tenderness. NEUROLOGICAL: No focal lateralizing motor deficits. A/P Assessment and Plan ASSESSMENT 1. Normal Pressure Hydrocephalus. 2. Rhabdomyolysis. 3. Multiple Falls. 4. Leukocytosis. 5. Sinus Tachycardia. 6. Hypertension. 7. Chronic Ataxic Gait. PLAN 1. He continues with the lumbar drain monitoring. 2. Neurosurgery disposition to pull the drain tomorrow. 3. Continue with Physical Therapy. 4. Discharge Planning-will discuss with his sister. 5. DVT and PE prophylaxis. Alek Cui MD Dec 22, 2016 19:31
[2016-12-23] VITALS (7 sets, daily range): BP systolic 107–142; BP diastolic 58–72; PULSE 71–88; RESP 16–20; TEMP 96.3–98.6; O2SAT 99–100
[2016-12-23] MEDS: PIPERACIL-TAZO 3.375 GM PREMIX 50 ML IV SCH ×4 (02:55→22:02)
[2016-12-23] MEDS: INSULIN ASPART SUPPLEMENTAL SCALE SQ SCH ×4 (07:00→21:00)
--- NOTE | 2016-12-23 08:03 | HHI.PR ---
Subjective Remarks He voices no new complaints. He is awaiting Neurosurgery assessment regarding decision for pulling the lumbar drain today. Objective - Vital Signs Date Time Temp Pulse Resp B/P Pulse Ox O2 Delivery O2 Flow Rate FiO2 12/23/16 05:12 97.6 76 16 107/58 99 12/23/16 01:03 98.5 71 18 127/65 99 12/22/16 23:32 Room Air 12/22/16 23:00 67 12/22/16 20:20 97.8 85 18 118/64 99 12/22/16 17:00 97.5 80 20 147/70 96 12/22/16 12:39 97.7 68 20 147/76 99 12/22/16 08:28 98.0 70 20 142/69 99 I/O 12/22/16 12/22/16 12/22/16 12/23/16 12/23/16 12/23/16 07:00 15:00 23:00 07:00 15:00 23:00 Intake Total 1305 ml Output Total 155 ml 550 ml Balance -155 ml 1305 ml -550 ml Intake Oral 720 ml IV Total 585 ml Output Urine Total 550 ml Drainage Total 155 ml # Voids 3 # Bowel Movements 1 0 Result Diagram: 12/20/16 0740 12/20/16 0740 Objective Remarks GENERAL: He appears comfortable sitting up in the bed. SKIN: Warm and dry. HEAD: Normocephalic. Atraumatic. EYES: No scleral icterus. No injection or drainage. NECK: Supple, trachea midline. No JVD or lymphadenopathy. CARDIOVASCULAR: Regular rate and rhythm without murmurs, gallops, or rubs. RESPIRATORY: Breath sounds equal bilaterally. No accessory muscle use. GASTROINTESTINAL: Abdomen soft, non-tender, nondistended. MUSCULOSKELETAL: No cyanosis, or edema. BACK: Nontender without obvious deformity. No costovertebral angle tenderness. No sacral edema. A/P Assessment and Plan ASSESSMENT 1. Normal Pressure Hydrocephalus. 2. Rhabdomyolysis. 3. Multiple Falls. 4. Leukocytosis. 5. Sinus Tachycardia. 6. Hypertension. 7. Chronic Ataxic Gait. PLAN 1. He continues with the lumbar drain monitoring. 2. Neurosurgery disposition to pull the drain will be made today. 3. Continue with Physical Therapy. 4. Discharge Planning-will discuss with his sister regarding a rehab center. 5. DVT and PE prophylaxis. Alek Cui MD Dec 23, 2016 08:03
[2016-12-23] MEDS: LISINOPRIL 20 MG TAB PO SCH (08:32)
[2016-12-23] MEDS: SODIUM CHLORIDE 0.9% FLUSH 10 ML FLUSH IV FLUSH SCH ×2 (08:33→22:02)
--- NOTE | 2016-12-23 16:57 | HHI.NSPN ---
Note Status Status: Progress Note Interval History Interval History 12/23: Patient states he is "blessed" and has no complaints. His lumbar drain was removed by Nursing at 1330. Care Mgmt states he has been accepted at [facility] and is to be discharged by Attending in the morning due to his need to be flat in bed for 6 hrs. Patient was seen with his HOB at 45 degrees. Labs, Micro, & Vital Signs Constitutional Vital Signs Date Time Temp Pulse Resp B/P Pulse Ox O2 Delivery O2 Flow Rate FiO2 12/23/16 13:09 97.2 76 20 142/72 12/23/16 10:05 87 12/23/16 08:42 97.7 74 20 138/67 99 12/23/16 05:12 97.6 76 16 107/58 99 12/23/16 01:03 98.5 71 18 127/65 99 12/22/16 23:32 Room Air 12/22/16 23:00 67 12/22/16 20:20 97.8 85 18 118/64 99 12/22/16 17:00 97.5 80 20 147/70 96 12/23/16 07:00 Intake Total 1305 ml Output Total 705 ml Balance 600 ml Review of Systems/Exam ROS Resp: Denies any shortness of breath or productive cough. Cardiac: Denies any chest pain, palpitations or irregular heart beat. GI: Denies any abdominal pain, nausea, vomiting or bowel incontinence. : Denies any bladder incontinence. Extremities: Denies any arm or leg pain or weakness. Back: Denies any back pain. Neuro: Denies any headache, dizziness, numbness or tingling. Exam Resp: CTAB w/o W/R/R, equal excursion, non-laboured, on RA. CV: S1S2 w/RRR w/o M/G/R, radial & pedal pulses 2+ bilaterally, cap refill < 2 sec, no pedal edema. GI: Abdomen soft, nontender, positive bowel sounds. Extremities: HEAD w/o difficulty. No evident deformity or clubbing. Back: Nontender, lumbar drain insertion site dry. Neuro: AAOx3. Speech clear & appropriate. Follows commands. Sensation grossly intact to light touch to all extremities. Motor strength 5/5 all major flexion & extension muscle groups to all extremities. Medications Current Medications Current Medications Medications (Trade) Dose Ordered Sig/Sherita Route Start Time Stop Time Status Last Admin (NS Flush) 2 ml UNSCH PRN IV FLUSH 12/13/16 01:45 (NS Flush) 2 ml BID IV FLUSH 12/13/16 09:00 12/23/16 08:33 (Zofran Inj) 4 mg Q6H PRN IVP 12/13/16 01:45 (Dulcolax Supp) 10 mg DAILY PRN RECTAL 12/13/16 01:45 (Tylenol) 650 mg Q6H PRN PO 12/13/16 01:45 ([place] 5-325 Mg) 1 tab Q4H PRN PO 12/13/16 01:45 12/21/16 21:33 (Morphine Inj) 2 mg Q3H PRN IV 12/13/16 01:45 (D50w (Vial) Inj) 25 ml UNSCH PRN IV PUSH 12/13/16 01:45 Glucagon 1 mg 1 mg UNSCH PRN OTHER 12/13/16 01:45 (Zosyn 3.375 Gm Premix) 50 ml @ 100 mls/hr Q6H IV 12/13/16 08:00 12/23/16 14:43 Lisinopril 20 mg 20 mg DAILY PO 12/15/16 09:00 12/23/16 08:32 Sodium Chloride 1,000 ml @ 0 mls/hr Q0M IV 12/16/16 09:28 (1/2 NS 1000 ml Inj) 1,000 ml @ 0 mls/hr Q0M IV 12/18/16 18:00 Medical Decision Making MDM Remarks 66 y/o M s/p lumbar spinal drain placement for evaluation of NPH. Plan Plan Remarks Keep patient flat for 6 hours after drain removal. Okay to transfer to [facility] in AM from NSGY's perspective. Follow up with Dr. Partida. We usually have a patient follow up a couple weeks after drain placement to see if his symptoms return but he can contact Dr. Partida ' office for a follow up evaluation when Dr. Partida returns next week. Manolo Peralta [facility] Dec 23, 2016 16:57
[2016-12-24 00:34] VITALS: BP 121/68; PULSE 72; RESP 16; TEMP 97.2; O2SAT 99
[2016-12-24] MEDS: PIPERACIL-TAZO 3.375 GM PREMIX 50 ML IV SCH ×3 (02:46→12:31)
[2016-12-24 04:13] VITALS: BP 104/53; PULSE 79; RESP 16; TEMP 98; O2SAT 99
[2016-12-24] MEDS: INSULIN ASPART SUPPLEMENTAL SCALE SQ SCH ×3 (07:00→16:00)
[2016-12-24 08:03] VITALS: BP 123/63; PULSE 70; RESP 18; TEMP 97.7; O2SAT 99
[2016-12-24 08:05] VITALS: PULSE 61
[2016-12-24] MEDS: SODIUM CHLORIDE 0.9% FLUSH 10 ML FLUSH IV FLUSH SCH (09:18)
[2016-12-24] MEDS: LISINOPRIL 20 MG TAB PO SCH (09:18)
--- NOTE | 2016-12-24 10:25 | HHI.NSPN ---
History Chief Complaint: no complaints Interval History 12/22/16: Pt has not had any PT since lumbar spinal drain replaced. He refused PT today. He is resting comfortably in bed. Denies headaches. 12/24/16: Pt awake and alert. Denies headaches. No complaints. Review of Systems General: Negative for: fever, chills, insomnia Respiratory: Negative for: shortness of breath, cough, sputum Cardiovascular: Negative for: chest pain Gastrointestinal: Negative for: nausea, vomitting, diarrhea, constipation Exam Results Vital Signs Date Time Temp Pulse Resp B/P Pulse Ox O2 Delivery O2 Flow Rate FiO2 12/24/16 08:05 61 12/24/16 08:03 97.7 18 123/63 99 12/24/16 06:00 Room Air Intake and Output 12/23/16 12/23/16 12/24/16 08:00 16:00 00:00 Intake Total 720 ml Output Total 550 ml 105 ml 125 ml Balance -550 ml 615 ml -125 ml Physical Examination Resp: CTA bilaterally, non-labored, on RA. CV: NSR no murmurs GI: Abdomen soft, nontender, positive bowel sounds. Skin: No signs of DVT in LEs. Muscle: Moves all 4 extremities well. Neuro: AAOx3. Speech clear & appropriate. Follows commands. Pupils equal. Lab, Micro, Other Results Last Impressions Lumbar Puncture Fluoroscopy 12/19/16 0000 Signed Impressions: Service Date/Time: Monday, December 19, 2016 11:21 - CONCLUSION: Uncomplicated lumbar drain placement as above. Irwin Chavis MD Chest X-Ray 12/13/16 0046 Signed Impressions: Service Date/Time: Tuesday, December 13, 2016 00:58 - CONCLUSION: Cardiomegaly. No acute cardiopulmonary disease. Mata Long MD Brain MRI 12/13/16 0000 Signed Impressions: Service Date/Time: Tuesday, December 13, 2016 15:06 - CONCLUSION: 1. Mild hydrocephalus with chronic appearing moderate periventricular white matter ischemic changes. No recent infarct. Jun Pena MD Head CT 12/12/16 0000 Signed Impressions: Service Date/Time: Monday, December 12, 2016 23:16 - CONCLUSION: 1. No evidence of acute intracranial pathology. Chronic ischemic changes as above. Possible normal pressure hydrocephalus. Correlation with clinical findings is necessary. Mata Long MD 12/23/16 12/23/16 12/24/16 15:00 23:00 07:00 Intake Total 720 ml Output Total 105 ml 125 ml 600 ml Balance 615 ml -125 ml -600 ml Intake Oral 720 ml Output Urine Total 125 ml 600 ml Drainage Total 105 ml # Voids 2 # Bowel Movements 1 1 Medical Decision Making Impression and Plan 66 y/o M s/p lumbar spinal drain placement for evaluation of NPH. P: Rehab placement today Follow up with Dr. Partida call office on 12/29 for appt. Piotr Golden Dec 24, 2016 10:25
--- NOTE | 2016-12-24 11:41 | HHI.PR ---
Subjective Remarks There are not any new changes with him. No new adverse complaints are voiced. Objective - Vital Signs Date Time Temp Pulse Resp B/P Pulse Ox O2 Delivery O2 Flow Rate FiO2 12/24/16 08:05 61 12/24/16 08:03 97.7 70 18 123/63 99 12/24/16 06:00 98 Room Air 12/24/16 04:13 98.0 79 16 104/53 99 12/24/16 00:34 97.2 72 16 121/68 99 12/23/16 21:45 98 Room Air 12/23/16 21:21 98.6 82 16 135/71 99 12/23/16 17:52 96.3 88 20 123/70 100 12/23/16 13:09 97.2 76 20 142/72 I/O 12/23/16 12/23/16 12/23/16 12/24/16 12/24/16 12/24/16 07:00 15:00 23:00 07:00 15:00 23:00 Intake Total 720 ml Output Total 550 ml 105 ml 125 ml 600 ml Balance -550 ml 615 ml -125 ml -600 ml Intake Oral 720 ml Output Urine Total 550 ml 125 ml 600 ml Drainage Total 105 ml # Voids 2 # Bowel Movements 0 1 1 1 Result Diagram: 12/20/1640 12/20/16739 Objective Remarks GENERAL: Alert and in no distress. SKIN: Warm and dry. HEAD: Normocephalic. EYES: No scleral icterus. No injection or drainage. NECK: Supple, trachea midline. No JVD or lymphadenopathy. CARDIOVASCULAR: Regular rate and rhythm without murmurs, gallops, or rubs. RESPIRATORY: Breath sounds equal bilaterally. No accessory muscle use. GASTROINTESTINAL: Abdomen soft, non-tender, nondistended. MUSCULOSKELETAL: No cyanosis, or edema. BACK: Nontender without obvious deformity. No CVA tenderness. A/P Assessment and Plan ASSESSMENT Medically Stable Presentation. PLAN Okay To Discharge To Rehab Center Today. Alek Cui MD Dec 24, 2016 11:41
[2016-12-24] MEDS ORDERED: LISI-515 PO (11:46)
[2016-12-24 12:06] VITALS: BP 126/58; PULSE 80; RESP 17; TEMP 98.1; O2SAT 100
[2016-12-24 16:25] VITALS: BP 126/63; PULSE 90; RESP 19; TEMP 96.8; O2SAT 99
== END 2016-12-24 16:46 | DRG 57 ==
LOC: NEDAMB 16:18 → NEDA 12-13 01:37 → N06A 12-13 03:51 → N05B 12-16 15:13
PROVIDERS: ADMIT Internal Medicine; ATTEND Internal Medicine
PROC: 009U30Z Drainage of Spinal Canal with Drainage Device, Percutaneous Approach (ICD-10-PCS; principal; 2016-12-16)
PROC: 009U30Z Drainage of Spinal Canal with Drainage Device, Percutaneous Approach (ICD-10-PCS; 2016-12-19)
DX: G91.2 (Idiopathic) normal pressure hydrocephalus (principal); M62.82 Rhabdomyolysis; F03.90 Unspecified dementia, unspecified severity, without behavioral disturbance, psychotic disturbance, mood disturbance, and anxiety; I10 Essential (primary) hypertension; D72.829 Elevated white blood cell count, unspecified; R29.6 Repeated falls; N28.9 Disorder of kidney and ureter, unspecified; R73.9 Hyperglycemia, unspecified; Z88.0 Allergy status to penicillin; R26.0 Ataxic gait; R00.0 Tachycardia, unspecified
CPT/HCPCS: 63741; 70450; 70551; 71010; 77003; 80048; 80053; 80307; 81001; 82550; 82552; 82607; 82746; 82945; 82948; 83036; 83605; 83735; 83874; 84157; 84436; 84443; 84484; 85025; 85610; 85730; 87040; 87070; 87086; 87205; 89051; 93005; 96360; 96361; 99152; 99153; C1755; J1815; J2250; J2543; J3010; J3370; J7030; J7050